=== PATIENT | female | born 1935 | race Caucasian/White ===

== ENCOUNTER 2017-07-24 15:54 | Inpatient (IN) | payer MEDICARE, OTHER ==
[~2017-07-24] VITALS: Ht 152.4 cm; Wt 65.5 kg
[~2017-07-24 15:54] MED LIST: ALEN70TA5 PO; CELE100C PO; CETI10TA18 PO; DOXY100C2 PO; DULO30CA2 PO; FAMO-75 PO; FLUT1DIS5 IH; FLUT9.9S NS; FURO-81 PO; GABA300C PO; GINK120C PO; GUAI600T31 PO; IPRA3AMP IH; LEVO500T51 PO; LEVO50TA6 PO; LEVO750T25 PO; METF10003 PO; METF500T5 PO; MONT10TA6 PO; MULT-186 PO; NAPR220C2 PO; PANT40TA5 PO; PRED20TA PO; SIMV20TA3 PO; TIOT18CA IH; TRAM50TA PO; VENL75CA PO; [UNRECOGNIZED DRUG - CODE] PO
--- NOTE | 2017-07-24 16:17 | NUR ---
PATIENT RECEIVED TO ROOM 309 VIA W/C. PATIENT LYING IN BED. REPORTS FEELING SOB AND "MY BONES HURT ALL OVER!!" 02 PLACED ON @2L/NC. PATIENT REPORTS PAIN 6-7 AT PRESENT. REPORTS PAIN ALL OVER "EVEN MY TOES AND FEET." DAUGHTER AT BEDSIDE. LUNG SOUNDS COARSE THROUGHOUT ALL LUNG ROMAN. PATIENT REPORTS EXPERIENCING "PHLEGM IN MY THROAT AND I USUALLY CANNOT COUGH ANYTHING UP." THE DAUGHTER REPORTS "SOMETIMES I CAN HEAR HER ACROSS THE ROOM!!" NO DISTRESS NOTED AT PRESENT. INSTRUCTED PATIENT RE: CALL LIGHT, SIDE RAILS, YELLOW SOCKS, PAIN MANAGEMENT,MD ROUNDS, MEALS, FALL PREVENTION, MEDS, 02 SAFETY, S/S TO REPORT, BED CONTROLS, CLEAR LIQUID DIET. PATIENT VERBALIZES UNDERSTANDING.
[2017-07-24 16:59] LABS: HEMOGLOBIN 11.1 g/dL (12.0-15.0); MEAN CELL HGB 30.2 pg (26-34); MEAN CELL HGB CONCENTRATION 31.3 g/dL (33-37); MEAN CORP VOLUME 96.7 fL (78-100); MEAN PLATELET VOLUME 9.1 fL (7.8-11.0); RED CELL DISTRIBUTION WIDTH 14.2 % (11.5-14.5); WHITE BLOOD CELL 11.1 10^3/uL (4.5-11.0)
[2017-07-24 17:00] VITALS: BP 126/95
--- NOTE | 2017-07-24 17:02 | PCM.EKG ---
[facility] Test Date: 2017-07-24 Test Time: 17:01:58 Pat Name: SARAH KWAN Department: Room: 309 A Gender: F Recovery Assistant: RT : 1935 Requested By: ANA MARIA RAMAN Order Number: [id number] Reading MD: Ana Maria Raman Measurements Intervals [place] Rate: 76 P: 98 VT: 156 QRS: 71 QRSD: 132 T: 62 QT: 386 QTc: 434 Interpretive Statements Normal sinus rhythm Right bundle branch block Abnormal ECG No previous ECG available for comparison Electronically Signed On 08-03-2017 7:23:10 CDT by Ana Maria Raman Please click the below link to view image of tracing.
[2017-07-24] MEDS: DUONEB 0.5 MG-3 MG/3 ML SOLN IH SCH ×2 (17:17→20:17)
[2017-07-24 17:25] LABS: CALCIUM 10.9 mg/dL (8.4-10.5); CARBON DIOXIDE 28.3 mmol/L (20.0-32)
[2017-07-24] MEDS ORDERED: FEXO1TAB29 PO (17:37)
--- NOTE | 2017-07-24 18:00 | NUR ---
PATIENT OFF UNIT FOR CT SCAN.
[2017-07-24] MEDS ORDERED: ANTIVERT PO PRN (18:30)
[2017-07-24 18:56] LABS: BILIRUBIN,URINE NEGATIVE (NEGATIVE); UROBILINOGEN,URINE NORMAL (NEGATIVE)
[2017-07-24 19:08] LABS: APPEARANCE,URINE CLEAR (CLEAR); UA COLOR DARK YELLOW (YELLOW)
[2017-07-24 19:32] VITALS: BP 135/70
[2017-07-24] MEDS: ULTRAM PO SCH (20:29)
[2017-07-24] MEDS: MUCINEX PO SCH (20:29)
[2017-07-24] MEDS: HNS 1000ML/KCL 20MEQ 1,000 ML IV SCH (20:29)
--- NOTE | 2017-07-24 20:43 | DIREP ---
PROCEDURE:CT CHEST WITH CONTRAST TECHNIQUE:Following the intravenous administration of contrast material, axial cuts were obtained through the chest. The images were viewed at lung and soft tissue settings. Sagittal and coronal reconstructions are provided. COMPARISON:CT, CT CHEST W/O, 01/31/2016, 09:44 PM. INDICATIONS:sob, cough, COPD FINDINGS: LUNGS:Centrilobular and paraseptal emphysema. Infiltrate is present in the left lower lobe posteriorly new as compared to previous study. There are chronic changes in the right middle lobe. CARDIAC:Normal size heart and normal pulmonary vascularity. THORACIC AORTA:Mildly calcified. MEDIASTINUM/JADYN:Normal. PLEURA:Normal. CHEST WALL:Normal. LIMITED ABDOMEN:Normal. BONES:Normal. THYROID:Normal. OTHER:No additional findings. CONCLUSION: 1. Left lower lobe infiltrate. 2. Centrilobular and paraseptal emphysema. 3. Atherosclerosis. Dictated by: Adair Zhang M.D. on 07/24/2017 at 08:33 PM
[2017-07-24] MEDS: NAPROXEN PO SCH (21:00)
--- NOTE | 2017-07-24 21:53 | HPH ---
ADMIT DATE: 07/24/2017 The patient is being placed under observation to Med/Surg. PRIMARY CARE PHYSICIAN: Marilyn Raman MD ADMITTING DIAGNOSES: 1. Shortness of breath with cough. 2. COPD exacerbation with hypoxia. 3. Hypertension, hyperlipidemia, type 2 diabetes mellitus. CHIEF COMPLAINT: Shortness of breath and coughing up sputum and not feeling well. HISTORY OF PRESENT ILLNESS: The patient is an 81-year-old female whom I have been treating for COPD for the past few weeks. I gave her an antibiotic initially with a Z-ELI and some breathing treatments, but she did improve from this. So, I extended the breathing treatments with more antibiotics and chest x-ray was done at that point. It appeared that she improved a little. However, she came back today, not feeling well. Her O2 sats were down to 86% on room air and her lungs had more rhonchi noted. No fever has been reported. She has been having productive sputum. She feels that her chest is tight and she cannot catch a deep breath. She has been doing her breathing treatments 3 times a day. Her appetite has gone down. She feels achy, her bones feel achy all over and again she has not been feeling well. No syncope reported. No lethargy reported. No recent travel. Unknown sick contacts reported recently. PAST MEDICAL HISTORY: Significant for hypertension, hyperlipidemia, COPD. She does have type 2 diabetes mellitus. PAST SURGERIES: Tonsillectomy and hysterectomy. SOCIAL HISTORY: She quit smoking more than 5 years ago. No alcohol, no drug use reported. FAMILY HISTORY: Asked and noncontributory for this admission. CURRENT MEDICATIONS: She is on include Mucinex, DuoNeb treatments, levothyroxine, Singulair, Protonix, simvastatin, tramadol, Rocio, meclizine, metformin, and Aleve. PHYSICAL EXAMINATION: VITAL SIGNS: Upon admission are as follows: Her temperature is 97.6, pulse rate 80, respirations 18, blood pressure 126/95 and O2 sats of 97% on 2 liters of nasal cannula. My physical exam is as follows: GENERAL: She is in no acute distress, awake and alert. HEENT: Oropharynx is clear. No maxillary sinus tenderness. NECK: Supple. HEART: S1, S2 audible. No murmurs. LUNGS: She had rhonchi bilaterally with decreasing breath sounds. ABDOMEN: Good bowel sounds, soft abdomen. EXTREMITIES: She has some varicose veins, 1+ distal pulses are noted. SKIN: Warm and dry. LABORATORY DATA: Laboratories were obtained. Her white count was 11,100, hemoglobin 11.1 and platelet count of 379. Sed rate was 44. Chemistry panel looked okay. BUN 29, creatinine 0.9. Her CRP was elevated at 10.41, calcium was up to 10.9. IMAGING STUDIES: EKG showed right bundle branch block that is old. ASSESSMENT: We have this female with COPD, shortness of breath, cough, malaise and fatigue with elevated calcium levels. I will get a PTH level and continue DuoNeb treatments with some Mucinex in the hospital. I will get a CT scan of the chest to see how her lungs are doing at this point, follow her blood sugars and see how she will feel by tomorrow. Marilyn Raman MD DR: KRISTEL/pelon JOB# [id number]
[2017-07-24] MEDS ORDERED: SOLU-MEDROL IV STA (23:31)
[2017-07-24 23:35] VITALS: BP 167/62
[2017-07-25] MEDS ORDERED: ROCEPHIN 1,000 MG in NS 100ML 100 ML IV SCH ×2
[2017-07-25] MEDS ORDERED: SOLU-MEDROL ONE (01:29)
[2017-07-25] MEDS ORDERED: NS 100ML 100 ML IV ONE (01:31)
[2017-07-25] MEDS ORDERED: ROCEPHIN ONE (01:31)
[2017-07-25 04:15] VITALS: BP 133/62
--- NOTE | 2017-07-25 06:30 | NUR ---
Report Received report and assumed care of pt. Pt resting in bed with eyes closed. Equal rise and fall of the chest noted. IV infusing with heat, redness, or edema noted at site. Call light within reach.
--- NOTE | 2017-07-25 06:30 | NUR ---
Report Report given to Ella Georges RN
[2017-07-25] MEDS: HNS 1000ML/KCL 20MEQ 1,000 ML IV SCH ×2 (07:00→21:49)
[2017-07-25 08:33] VITALS: BP 130/71
[2017-07-25] MEDS: CYMBALTA PO SCH (08:34)
[2017-07-25] MEDS: SINGULAIR PO SCH (08:35)
[2017-07-25] MEDS: MUCINEX PO SCH ×2 (08:35→21:47)
[2017-07-25] MEDS: PROTONIX PO SCH (08:35)
[2017-07-25] MEDS: ZOCOR PO SCH (08:35)
[2017-07-25] MEDS: ULTRAM PO SCH ×3 (08:35→21:49)
[2017-07-25] MEDS: NAPROXEN PO SCH ×2 (09:00→21:00)
[2017-07-25] MEDS ORDERED: SYNTHROID PO SCH (09:00)
[2017-07-25] MEDS: DUONEB 0.5 MG-3 MG/3 ML SOLN IH SCH ×4 (09:07→20:56)
--- NOTE | 2017-07-25 09:45 | NUR ---
DISCHARGE PLANNING CM VISITED WITH PATIENT REGARDING DISCHARGE PLAN AND NEEDS. PATIENT LIVES AT HOME ALONE. SHE HAS A DAUGHTER AND SON-IN-LAW WHO LIVE DOWN THE STREET AND ARE VERY SUPPORTIVE OF ANYTHING SHE NEEDS. SHE HAS A WALKER AND A SHOWER CHAIR AT HOME, AND HOME OXYGEN THROUGH [facility] IN [place]. PATIENT HAS HAS [facility] HOME HEALTH IN THE PAST, CM DISCUSSED GETTING THAT SET BACK UP AND PATIENT REFUSED. PATIENT STATES SHE WANTS TO GO TO OUTPATIENT PHYSICAL THERAPY AT [facility] WITH [facility]. PATIENT WILL DISCUSS PT ORDER WITH DR. CHIU WHEN HE ROUNDS. DISCHARGE GOAL IS TO DISCHARGE HOME. CM DEPT WILL CONTINUE TO FOLLOW DISCHARGE NEEDS.
[2017-07-25 11:50] VITALS: BP 111/54
[2017-07-25] MEDS ORDERED: LASIX IV STA (12:48)
[2017-07-25] MEDS ORDERED: XOPENEX IH PRN (13:00)
[2017-07-25] MEDS: PREDNISONE PO SCH (13:00)
[2017-07-25] MEDS ORDERED: PREDNISONE PO ONE (13:48)
[2017-07-25 17:10] VITALS: BP 154/85
--- NOTE | 2017-07-25 18:30 | NUR ---
Report Received report from Ella Georges RN
[2017-07-25 20:40] VITALS: BP 136/66
[2017-07-25] MEDS: ADVAIR 250-50 DISKUS IH SCH (20:55)
[2017-07-25] MEDS: ROCEPHIN 1,000 MG in NS 100ML 100 ML IV SCH (21:48)
[2017-07-26] VITALS (7 sets, daily range): BP systolic 135–172; BP diastolic 56–93
[2017-07-26 05:47] LABS: BASOPHIL % 0.1 % (0.0-0.2); EOSINOPHIL % 0.4 % (0.0-5.0); HEMOGLOBIN 10.3 g/dL (12.0-15.0); LYMPHOCYTES # 1.6 10^3/uL (1.0-4.8); LYMPHOCYTES % 16.6 % (24.0-44.0); MEAN CELL HGB 30.3 pg (26-34); MEAN CORP VOLUME 94.7 fL (78-100); MEAN PLATELET VOLUME 9.6 fL (7.8-11.0); MONOCYTES # 1.1 10^3/uL (0.3-0.8); MONOCYTES % 11.3 % (5.0-12.0); NEUTROPHILS % 71.4 % (41.0-85.0); RED CELL DISTRIBUTION WIDTH 13.8 % (11.5-14.5); WHITE BLOOD CELL 9.9 10^3/uL (4.5-11.0)
[2017-07-26 05:56] LABS: CALCIUM 10.6 mg/dL (8.4-10.5); CARBON DIOXIDE 25.9 mmol/L (20.0-32)
[2017-07-26] MEDS: SYNTHROID PO SCH (06:29)
--- NOTE | 2017-07-26 06:40 | NUR ---
BEDSIDE REPORT RECEIVED FROM GERRI AVERY. PATIENT LYING IN BED WITH EYES CLOSED. RESPIRATIONS UNLABORED. NO DISTRESS NOTED. SKIN WARM AND DRY. SIDE RAILS UP X2. CALL LIGHT WITHIN REACH.
--- NOTE | 2017-07-26 07:30 | NUR ---
ASSESSMENT COMPLETED. PATIENT RESPIRATIONS UNLABORED. LUNG SOUNDS WITH SLIGHT COARSENESS. LOOSE COUGH NOTED. PATIENT DENIES PRODUCTIVE COUGH. HEART RATE REGULAR. SKIN WARM AND DRY. VOIDING WITHOUT PROBLEMS. ABDOMEN SOFT WITH ACTIVE BOWEL SOUNDS. NO DISTRESS NOTED. PATIENT STATES "IM FEELING BETTER." IV PATENT WITHOUT S/S INFILTRATION. 1/2 NS INFUSING AT 100CC/HR. SR UPX2. CALL LIGHT WITHIN REACH.
[2017-07-26] MEDS: HNS 1000ML/KCL 20MEQ 1,000 ML IV SCH ×2 (08:00→12:37)
[2017-07-26] MEDS: ADVAIR 250-50 DISKUS IH SCH ×2 (08:56→21:00)
[2017-07-26] MEDS: DUONEB 0.5 MG-3 MG/3 ML SOLN IH SCH ×4 (08:56→21:55)
[2017-07-26] MEDS: SINGULAIR PO SCH (09:17)
[2017-07-26] MEDS: MUCINEX PO SCH ×2 (09:17→21:09)
[2017-07-26] MEDS: PROTONIX PO SCH (09:17)
[2017-07-26] MEDS: CYMBALTA PO SCH (09:17)
[2017-07-26] MEDS: ZOCOR PO SCH (09:17)
[2017-07-26] MEDS: ULTRAM PO SCH ×3 (09:19→21:09)
--- NOTE | 2017-07-26 09:20 | NUR ---
PATIENT TOOK OWN INHALATION OF ADVAIR DISKUS WHILE NURSE AT BEDSIDE.
[2017-07-26] MEDS: PREDNISONE PO SCH (09:28)
[2017-07-26] MEDS: NAPROXEN PO SCH ×2 (09:28→21:08)
--- NOTE | 2017-07-26 10:45 | NUR ---
PATIENT RESTING WITHOUT DISTRESS. RESPIRATIONS UNLABORED. 02 ON PER NASAL CANNULA AT 2L. NO DISTRESS NOTED. SR UP X2. CALL LIGHT WITHIN REACH.
--- NOTE | 2017-07-26 12:15 | PRM.PN ---
Subjective Subjective Date: Jul 26, 2017 Time: 12:00 Subjective Pt breathing ok Patient History: Asthma 33 FATHER, Chronic obstructive pulmonary disease 33 FATHER, G8 BROTHER, G8 SISTER, Congestive heart failure 33 FATHER, Diabetes mellitus 32 MOTHER, 19 CHILD FH: back pain 19 CHILD FH: coronary artery disease G8 BROTHER, FH: drug dependence 19 CHILD Hypertension 32 MOTHER, G8 SISTER, Unknown G8 SISTER, No Family History of: Alzheimer's disease Cerebrovascular disorder Diabetes insipidus Parkinson's disease VTE VTE Risk Total Score: 3 VTE Risk Score VTE Risk: Score 0-1 = Low Risk (Aggressive mobilization; early ambulation; no VTE prophylaxis required) Score 2: Moderate Risk (Intermittent/Pneumatic Compression Device OR Lovenox/Heparin/Coumadin) Score 3-4: High Risk (Intermittent/Pneumatic Compression Device AND Lovenox/Heparin/Coumadin) Score > or =5: Highest Risk (Intermittent/Pneumatic Compression Device AND Lovenox/Heparin/Coumadin) Antico:Hep/LMWH/Coum/Xarelto: Yes Mechanical device ordered: Yes Review of Systems Constitutional: No: Fever, Malaise Eyes: No: Pain, Vision change, Conjunctivae inflammation, Eyelid inflammation ENT: No: Ear pain, Ear discharge, Nose pain, Nose discharge, Nose congestion Respiratory: Cough, SOB with excertion Cardiovascular: No: Chest Pain, Palpitations, Orthopnea Gastrointestinal: No: Nausea, Vomiting, Abdominal Pain Genitourinary: No Dysuria, No Hematuria, No Retention Musculoskeletal: No: neck pain, arm pain Skin: No: Lesions, Jaundice, Bruising Neurological: No: Numbness, Incoordination, Confusion, Seizures Allergies: Coded Allergies: Penicillins (Unverified Allergy, Unknown, SWELLING,SICK TO STOMACH, ) codeine (Unverified Adverse Reaction, Severe, 07/24/17) DIZZINESS Scheduled Duloxetine Hcl (Cymbalta), 1 CAP PO DAILY, (Reported) Fexofenadine/Pseudoephedrine (Rocio-D 24 Hour Tablet), 1 TAB PO DAILY, ( Reported) Guaifenesin (Mucinex), 1 TAB PO BID Ipratropium/Albuterol Sulfate (Iprat-Albut 0.5-3(2.5) Mg/3 Ml), 3 ML IH QID Levothyroxine Sodium (Levothyroxine Sodium), 50 MCG PO DIRECTED, (Reported) Metformin Hcl (Metformin Hcl), 1 TAB PO BID Montelukast Sodium (Singulair), 10 MG PO DAILY, (Reported) Naproxen Sodium (Aleve), 220 MG PO BID, (Reported) Pantoprazole Sodium (Pantoprazole Sodium), 40 MG PO DAILY, (Reported) Simvastatin (Simvastatin), 20 MG PO DAILY, (Reported) Tramadol Hcl (Tramadol Hcl), 50 MG PO TID, (Reported) Scheduled PRN Meclizine Hcl (Meclizine Hcl), 25 MG PO TID PRN for DIZZINESS, (Reported) Discontinued Medications Alendronate Sodium (Alendronate Sodium), 70 MG PO ONCE WEEKLY, (Reported) Discontinued Reason: No Longer Taking Cetirizine Hcl (Cetirizine Hcl), 1 TAB PO DAILY, (Reported) Discontinued Reason: No Longer Taking Ginkgo Biloba Extract (Ginkgo Biloba), 60 MG PO BID, (Reported) Discontinued Reason: No Longer Taking Multivitamin (Multi-Day Vitamins), 1 TAB PO DAILY, (Reported) Discontinued Reason: No Longer Taking Tiotropium [place] (Spiriva), 18 MCG IH DAILY, (Reported) Discontinued Reason: No Longer Taking Objective Vitals and I/O Vital Sign - Last 24 Hours 07/25/17 07/25/17 07/25/17 07/25/17 13:51 13:55 14:06 17:10 Temp 98.0 Pulse 85 87 87 Resp 20 20 20 B/P (MAP) 111/54 154/85 (108) Pulse Ox 98 98 94 07/25/17 07/25/17 07/25/17 07/25/17 17:37 17:45 20:40 20:59 Temp 98.8 Pulse 87 88 88 83 Resp 20 18 B/P (MAP) 136/66 (89) Pulse Ox 97 97 97 97 O2 Delivery Nasal Canula 07/25/17 07/25/17 07/25/17 07/26/17 21:00 21:08 22:08 00:37 Temp 97.4 Pulse 83 86 86 Resp 18 B/P (MAP) 136/75 (95) Pulse Ox 97 97 95 O2 Delivery Comfort Zev Nasal Cannula Nasal Canula O2 Flow Rate 2.00 2.00 FiO2 28 07/26/17 07/26/17 07/26/17 07/26/17 04:42 07:57 08:57 08:59 Temp 98.1 98.0 Pulse 84 79 84 84 Resp 18 B/P (MAP) 135/57 (83) 157/67 (97) Pulse Ox 97 99 91 91 O2 Delivery Nasal Canula Nasal Canula Nasal Cannula O2 Flow Rate 2.00 FiO2 28 07/26/17 07/26/17 09:05 11:56 Temp 98.9 Pulse 79 85 Resp 18 17 B/P (MAP) 147/56 (86) Pulse Ox 96 100 O2 Delivery Nasal Canula Intake and Output 07/25/17 07/25/17 07/26/17 15:00 23:00 07:00 Intake Total 980 ml 490 ml Output Total 2300 ml 1150 ml Balance -1320 ml -660 ml General: Alert, Oriented X3, Cooperative, No acute distress HEENT: Atraumatic, PERRLA, Mucous membr. moist/pink Neck: Supple, No JVD, No LAD Lungs: Clear to auscultation, Normal air movement Heart: Normal S1, Normal S2 Abdomen: Normal bowel sounds, Soft Extremities: No clubbing, No cyanosis Skin: No rashes, No breakdown Neuro: Normal speech Psych/Mental Status: Mental status NL, Mood NL Medication Reconciliation Scheduled Duloxetine Hcl (Cymbalta), 1 CAP PO DAILY, (Reported) Fexofenadine/Pseudoephedrine (Rocio-D 24 Hour Tablet), 1 TAB PO DAILY, ( Reported) Guaifenesin (Mucinex), 1 TAB PO BID Ipratropium/Albuterol Sulfate (Iprat-Albut 0.5-3(2.5) Mg/3 Ml), 3 ML IH QID Levothyroxine Sodium (Levothyroxine Sodium), 50 MCG PO DIRECTED, (Reported) Metformin Hcl (Metformin Hcl), 1 TAB PO BID Montelukast Sodium (Singulair), 10 MG PO DAILY, (Reported) Naproxen Sodium (Aleve), 220 MG PO BID, (Reported) Pantoprazole Sodium (Pantoprazole Sodium), 40 MG PO DAILY, (Reported) Simvastatin (Simvastatin), 20 MG PO DAILY, (Reported) Tramadol Hcl (Tramadol Hcl), 50 MG PO TID, (Reported) Scheduled PRN Meclizine Hcl (Meclizine Hcl), 25 MG PO TID PRN for DIZZINESS, (Reported) Discontinued Medications Alendronate Sodium (Alendronate Sodium), 70 MG PO ONCE WEEKLY, (Reported) Discontinued Reason: No Longer Taking Cetirizine Hcl (Cetirizine Hcl), 1 TAB PO DAILY, (Reported) Discontinued Reason: No Longer Taking Ginkgo Biloba Extract (Ginkgo Biloba), 60 MG PO BID, (Reported) Discontinued Reason: No Longer Taking Multivitamin (Multi-Day Vitamins), 1 TAB PO DAILY, (Reported) Discontinued Reason: No Longer Taking Tiotropium [place] (Spiriva), 18 MCG IH DAILY, (Reported) Discontinued Reason: No Longer Taking Course Blood Pressure Systolic: 147 Blood Pressure Diastolic: 56 Blood Pressure Mean: 86 Assessment/Plan Assessment/Plan Assessment/Plan 81 yo female with pneumonia, COPD, DM, hypercalcemia - cont IV abx - cont IVF - cont neb tx - follow sugars on low dose prednisone Problems: Patient History: Asthma 33 FATHER, Chronic obstructive pulmonary disease 33 FATHER, G8 BROTHER, G8 SISTER, Congestive heart failure 33 FATHER, Diabetes mellitus 32 MOTHER, 19 CHILD FH: back pain 19 CHILD FH: coronary artery disease G8 BROTHER, FH: drug dependence 19 CHILD Hypertension 32 MOTHER, G8 SISTER, Unknown G8 SISTER, No Family History of: Alzheimer's disease Cerebrovascular disorder Diabetes insipidus Parkinson's disease ANA MARIA CHIU MD Jul 26, 2017 12:15
--- NOTE | 2017-07-26 12:30 | NUR ---
PATIENT SITTING UP IN BED. RESPIRATIONS UNLABORED. 02 ON PER NASAL CANNULA AT 2L/NC. REPORTS BACK PAIN WITH MOVING AROUND ROOM OR GETTING OUT OF BED. VERBALIZES PAIN IS NOT SEVERE UPON ADMISSION. IV PATENT IN RIGHT WRIST WITH 1/2NS WITH 20 K+ INFUSING AT 80CC/HR VIA PUMP. NEGATIVE S/S INFILTRATION NOTED. NO DISTRESS NOTED AT PRESENT. PATIENT INDEPENDENT IN ROOM WITH ROLLING WALKER. SIDE RAILS UP X2. CALL LIGHT WITHIN REACH.
[2017-07-26] MEDS: LOVENOX SQ SCH (12:53)
--- NOTE | 2017-07-26 14:15 | NUR ---
PATIENT RESTING IN BED WITH EYES CLOSED. NEGATIVE DISTRESS NOTED.
--- NOTE | 2017-07-26 15:59 | NUR ---
PATIENT RESTING IN BED WATCHING TV. REPORTS PAIN MUCH IMPROVED SINCE IMPROVEMENT. STATES "I FEEL MORE SORENESS THAN ANYTHING. SOON I MOVE THOUGH THE PAIN SURE SHOOTS THRU ME." RESPIRATIONS UNLABORED. REPORTS OCCASIONAL PRODUCTIVE COUGH. REPORTS SMALL AMOUNT "DIRTY GREEN" SPUTUM. SR UP X2. CALL LIGHT WITHIN REACH. DENIES UNMET NEEDS.
--- NOTE | 2017-07-26 17:30 | NUR ---
RESTING IN BED. AWAKE AND ALERT. DENIES COMPLAINTS. SKIN WARM AND DRY. RESPIRATIONS UNLABORED. 02 ON PER NASAL CANNULA AT 2L/NC. IV PATENT WITHOUT S/S INFILTRATION. DENIES UNMET NEEDS. SR UPX2. CALL LIGHT WITHIN REACH.
--- NOTE | 2017-07-26 19:00 | NUR ---
REPORT GIVEN TO GERRI MANN.
[2017-07-26] MEDS: ROCEPHIN 1,000 MG in NS 100ML 100 ML IV SCH (21:14)
[2017-07-27 04:43] VITALS: BP 149/75
[2017-07-27] MEDS: HNS 1000ML/KCL 20MEQ 1,000 ML IV SCH (05:24)
[2017-07-27] MEDS: SYNTHROID PO SCH (06:20)
--- NOTE | 2017-07-27 06:55 | NUR ---
REPORT RECEIVED FROM GERRI MANN.
[2017-07-27 07:25] VITALS: BP 139/71
--- NOTE | 2017-07-27 07:30 | NUR ---
ASSESSMENT COMPLETED. PATIENT AWAKE AND ALERT. SKIN WARM AND DRY. RESPIRATIONS UNLABORED. HEART RATE REGULAR. DENIES DIFFICULTY BREATHING. OCCASIONAL PRODUCTIVE COUGH. ABDOMEN SOFT AND NONDISTENDED. DENIES DIFFICULTY URINATING. URINE PALE YELLOW AND CLEAR. PATIENT REPORTS CONTINUOUS LOW BACK PAIN. DENIES SEVERE. AMBULATORY IN ROOM. IV PATENT WITHOUT S/S INFILTRATION. SR UPX2. CALL LIGHT WITHIN REACH. NO DISTRESS AT PRESENT.
[2017-07-27] MEDS: DUONEB 0.5 MG-3 MG/3 ML SOLN IH SCH ×2 (08:46→12:43)
[2017-07-27] MEDS: ADVAIR 250-50 DISKUS IH SCH (08:46)
--- NOTE | 2017-07-27 09:30 | NUR ---
MEDS ADMINISTERED. PATIENT SITTING UP IN BED. DENIES UNMET NEEDS. NO DISTRESS NOTED. SR UPX2. CALL LIGHT WITHIN REACH.
[2017-07-27] MEDS: CYMBALTA PO SCH (09:31)
[2017-07-27] MEDS: PREDNISONE PO SCH (09:31)
[2017-07-27] MEDS: PROTONIX PO SCH (09:31)
[2017-07-27] MEDS: SINGULAIR PO SCH (09:31)
[2017-07-27] MEDS: MUCINEX PO SCH (09:31)
[2017-07-27] MEDS: ZOCOR PO SCH (09:34)
[2017-07-27] MEDS: NAPROXEN PO SCH (09:34)
[2017-07-27] MEDS: ULTRAM PO SCH (09:35)
--- NOTE | 2017-07-27 11:29 | NUR ---
PATIENT RESTING IN BED WITH EYES CLOSED. DENIES UNMET NEEDS. RESPONDS TO VERBAL STIMULI.
[2017-07-27 11:52] VITALS: BP 127/67
[2017-07-27] MEDS: LOVENOX SQ SCH (12:18)
[2017-07-27] MEDS ORDERED: PRED1TAB PO (12:23)
[2017-07-27] MEDS ORDERED: CEFD300C2 PO (12:23)
[2017-07-27 13:10] VITALS: BP 127/67
--- NOTE | 2017-07-27 13:10 | NUR ---
DISCHARGE INSTRUCTIONS GIVEN TO PATIENT AND DAUGHTER. INSTRUCTED RE: NEW MEDS, SIDE EFFECTS TO REPORT. IMPORTANCE OF COMPLIANCE. PATIENT REPORTS BEING ON SAME MEDS BEFORE AND WERE DISCONTINUED. INSTRUCTED RE: FOLLOWUP WITH MD. DAUGHTER ACCOMPANYING DAUGHTER. DISCHARGED TO PRIVATE VEHICLE WITH DAUGHTER.
--- NOTE | 2017-07-27 23:32 | DSH ---
DATE OF DISCHARGE: 07/27/2017 ADMITTING DIAGNOSES: Pneumonia with shortness of breath, malaise and COPD exacerbation and type 2 diabetes mellitus and hypercalcemia. DISCHARGE DIAGNOSES: Pneumonia, resolving with COPD, diabetes, and hypercalcemia. HOSPITAL COURSE: The patient is a pleasant 81-year-old female who came in with worsening cough and congestion. She did have underlying COPD and on oxygen treatment. She did have a COPD exacerbation; however, CT scan did show a left basilar pneumonia. I went ahead and started her on IV Rocephin with breathing treatments. I gave her a one-time dose of Solu-Medrol that helped her breathing. Sugars were running on the high side; however, they normalized after that. She did respond well to prednisone before and she had requested to go back on prednisone, so I put her on 2 mg of prednisone at this point and her sugars are not very elevated. Her metformin was held for [address] scan with IV contrast was done, but it will be restarted today. Her breathing is better. Her calcium level was around 11 chronically. I gave her some fluids and some Lasix. Her calcium is down to 10.6. Kidney function looks good. Her white count is good at this point. So, she will be discharged today, resume her home neb treatments, her home oxygen, use her incentive spirometry. I am putting her on Omnicef twice a day for 5 days and some prednisone 2 mg a day along with her other home medications. She is to follow up with me next week. My office staff will make the appointment. Resume home diet and resume her metformin for now. I did send off a parathyroid hormone on her as a workup for her hypercalcemia and it was normal. Marilyn Raman MD DR: KRISTEL/pelon JOB# [id number]
== END 2017-07-27 13:24 | disposition home or self-care (01) | DRG 193 ==
LOC: ATP 15:54 → MS 15:57 → OBSVTOIN 07-25 12:47
PROVIDERS: ADMIT Pediatrics; ATTEND Pediatrics
DX: J18.9 Pneumonia, unspecified organism (principal); J96.21 Acute and chronic respiratory failure with hypoxia; J44.0 Chronic obstructive pulmonary disease with (acute) lower respiratory infection; J44.1 Chronic obstructive pulmonary disease with (acute) exacerbation; E83.52 Hypercalcemia; E11.9 Type 2 diabetes mellitus without complications; E78.5 Hyperlipidemia, unspecified; I10 Essential (primary) hypertension; Z87.891 Personal history of nicotine dependence; Z90.710 Acquired absence of both cervix and uterus; Z79.84 Long term (current) use of oral hypoglycemic drugs; Z79.899 Other long term (current) drug therapy; Z88.0 Allergy status to penicillin; Z88.5 Allergy status to narcotic agent; Z82.5 Family history of asthma and other chronic lower respiratory diseases; Z82.49 Family history of ischemic heart disease and other diseases of the circulatory system; Z83.3 Family history of diabetes mellitus
CPT/HCPCS: 36415; 71260; 80048; 81000; 82948; 83970; 85025; 85027; 85651; 86140; 93005; 94640; G0378; J0696; J1650; J2920; J7030; J7050; J7512; J7620; J1940; J8499; Q9965

== ENCOUNTER 2018-04-04 15:27 | Inpatient (IN) | payer MEDICARE, OTHER ==
[~2018-04-04] VITALS: Ht 157.5 cm; Wt 62.7 kg
[~2018-04-04 15:27] MED LIST changes: -ALEN70TA5 PO; +ALEN70TA6 PO; +CEFD300C2 PO; +FEXO1TAB29 PO; -IPRA3AMP IH; +IPRA3AMP25 IH; -METF10003 PO; +METF10007 PO; +METF500T17 PO; -METF500T5 PO; +PRED1TAB PO
[2018-04-04] MEDS ORDERED: NS 500ML 500 ML IV ONE (15:35)
--- NOTE | 2018-04-04 15:36 | NUR ---
ARRIVAL PT ARRIVED AT THIS TIME.
[2018-04-04 15:50] LABS: BASOPHIL % 0.2 % (0.0-0.2); EOSINOPHIL # 0.1 10^3/uL (0.0-0.2); EOSINOPHIL % 0.6 % (0.0-5.0); HEMOGLOBIN 11.6 g/dL (12.0-15.0); LYMPHOCYTES # 1.6 10^3/uL (1.0-4.8); LYMPHOCYTES % 9.6 % (24.0-44.0); MEAN CELL HGB 29.8 pg (26-34); MEAN CELL HGB CONCENTRATION 30.9 g/dL (33-37); MEAN CORP VOLUME 96.7 fL (78-100); MEAN PLATELET VOLUME 8.8 fL (7.8-11.0); MONOCYTES # 1.2 10^3/uL (0.3-0.8); MONOCYTES % 7.6 % (5.0-12.0); NEUTROPHIL # 13.2 10^3/uL (1.8-7.7); NEUTROPHILS % 81.8 % (41.0-85.0); RED CELL DISTRIBUTION WIDTH 13.9 % (11.5-14.5); WHITE BLOOD CELL 16.1 10^3/uL (4.5-11.0)
--- NOTE | 2018-04-04 15:53 | PCM.EKG ---
[facility] Test Date: 2018-04-04 Test Time: 15:49:12 Pat Name: SARAH KWAN Department: Room: 312 A Gender: F Chemical Lab Technician: SHREYA : 1935 Requested By: ANA MARIA CHIU Order Number: [id number] Reading MD: Measurements Intervals [place] Rate: 93 P: 105 NC: 152 QRS: 68 QRSD: 132 T: 52 QT: 372 QTc: 462 Interpretive Statements Normal sinus rhythm Right bundle branch block Abnormal ECG Compared to ECG 07/24/2017 17:01:58 No significant changes Please click the below link to view image of tracing.
[2018-04-04] MEDS ORDERED: LORA10TA75 PO (16:07)
[2018-04-04] MEDS ORDERED: ALBU18HF IH (16:07)
[2018-04-04] MEDS ORDERED: BUPR150T17 PO (16:07)
[2018-04-04] MEDS ORDERED: FLUT1DIS5 IH (16:07)
[2018-04-04 16:14] LABS: ALANINE AMINOTRANSFERASE(ML) 13 U/L (12-78); ALKALINE PHOSPHATASE 170 U/L (50-136); ASPARTATE AMINO TRANSFERASE 11 U/L (0-35); CALCIUM 11.2 mg/dL (8.4-10.5); CARBON DIOXIDE 27.4 mmol/L (20.0-32); GLUCOSE 122 mg/dL (70-110)
[2018-04-04 16:36] VITALS: BP 136/74
[2018-04-04] MEDS: DUONEB 0.5 MG-3 MG/3 ML SOLN IH SCH ×2 (17:04→20:21)
--- NOTE | 2018-04-04 17:42 | DIREP ---
PROCEDURE:CHEST 2 VIEWS COMPARISON:[facility], CT, CT CHEST W/CONTRAST, 07/24/2017, 06:28 PM. INDICATIONS:sob, cough FINDINGS: LUNGS/PLEURA:COPD with no acute infiltrates. VASCULATURE:Normal. Unremarkable pulmonary vasculature. CARDIAC:Normal. No cardiac silhouette abnormality or cardiomegaly. MEDIASTINUM:Normal. No visible mass or adenopathy. BONES:Mild degenerative changes in the thoracic spine with mild dextroscoliosis. OTHER:Negative. CONCLUSION: 1. COPD with no acute infiltrates. Dictated by: Sukhi Sidhu M.D. on 04/04/2018 at 05:38 PM
[2018-04-04] MEDS ORDERED: ROCEPHIN ONE (19:27)
[2018-04-04] MEDS ORDERED: NS 100ML 100 ML IV ONE (19:27)
[2018-04-04] MEDS: ROCEPHIN 1,000 MG in NS 100ML 100 ML IV SCH (19:31)
[2018-04-04 19:51] VITALS: BP 146/77
--- NOTE | 2018-04-04 20:23 | HPH ---
ADMIT DATE: 04/04/2018 The patient is being placed under observation to Med-Surg. PRIMARY CARE PHYSICIAN: Marilyn Raman M.D. ADMITTING DIAGNOSES: 1. Chronic obstructive pulmonary disease exacerbation with hypoxia. 2. Cough with a suspected sinusitis. 3. Hypertension, hyperlipidemia, and type 2 diabetes mellitus with malaise and fatigue. CHIEF COMPLAINT: Coughing and not feeling well. HISTORY OF PRESENT ILLNESS: As follows: The patient is a very pleasant 82-year-old female who for the past week 7-10 days has been having increasing coughing and shortness of breath. She states she has been coughing a lot of nasty sputum up, and she is very congested. She has been taking her breathing treatments, but she came into my office today with O2 sat of 87%, and she was having some significant coughing and shortness of breath. She had lots of wheezing on exam and at that point, she definitely had a COPD exacerbation in my office, and I was concerned about a possibility of underlying infection, so I put her in the hospital and did a workup at that point. She does complain of some chills, but no fever lately. No syncope, no lethargy, her appetite has been poor. She does have some chest discomfort when she coughs. She denies any abdominal pain. There is no hematemesis, no melena, no hemoptysis, no recent travel reported, no dysuria, no diarrhea, no constipation. PAST MEDICAL HISTORY: Significant for hypertension, hyperlipidemia, COPD, GERD, and type 2 diabetes mellitus. PAST SURGICAL HISTORY: She has had a tonsillectomy and hysterectomy. SOCIAL HISTORY: She quit smoking more than 5 years ago. No alcohol, no drug use reported. FAMILY HISTORY: Asked and noncontributory for this admission. MEDICATIONS: Medications that she is on at home include following: Advair, albuterol, Mucinex, naproxen, bupropion, Cymbalta, levothyroxine, Claritin, meclizine, metformin, Singulair, Protonix, and simvastatin. PHYSICAL EXAMINATION: VITAL SIGNS: When she first came in are as follows: Temperature is 98.3, pulse rate was 85, respirations 19, blood pressure was 136/74, O2 sats were initially 90% on room air. My physical exam is as follows: GENERAL: When I saw her in my office. She appeared tired, and she was coughing a lot and having shortness of breath. HEENT: Oropharynx was clear. She does have some sinus congestion noted. NECK: Supple. RESPIRATORY: She had audible expiratory wheezes throughout her lung [place] with diminished breath sounds at the bases. HEART: S1, S2 audible, slight systolic murmur noted. ABDOMEN: Bowel sounds are present. Soft abdomen, no rebound, no guarding, no masses. EXTREMITIES: No pitting edema, 2+ distal pulses are noted. SKIN: Warm and dry. LABORATORY DATA: Labs were obtained. White count was elevated to 16,100, hemoglobin of 11.6 and platelet count of 438. Sed rate was 49. Coags were normal. Chemistry panel had a glucose of 122, calcium of 11.2. CRP was elevated to 12.74. Troponin was less than 0.02, proBNP was 1116. Chest x-ray showed COPD picture without any infiltrates noted. EKG had a right bundle branch block that was no change from prior EKG. ASSESSMENT: We have this elderly female with COPD exacerbation and sinusitis. She is not septic, currently. I will go ahead and put her on DuoNeb treatments with Solu-Medrol and Rocephin therapy, start her on some incentive spirometry and flutter valve. Follow her sugars and blood pressures in the hospital and give her some fluids in the meantime. I will get an echo to assess her pulmonary artery pressures at this point to see whether or not her COPD has affected her heart. Marilyn Raman MD DR: KRISTEL/pelon JOB# [id number]
[2018-04-04] MEDS: GLUCOPHAGE PO SCH (21:00)
[2018-04-04] MEDS ORDERED: ANTIVERT PO PRN (21:30)
--- NOTE | 2018-04-04 21:30 | NUR ---
MEDICATION CALLED DR APPLE REED WAS REQUESTING AN ORDER FOR ALEVE FOR BACK PAIN. DR CHIU ORDERED 220 MG PRN
[2018-04-04] MEDS: SOLU-MEDROL IV SCH (21:38)
[2018-04-04] MEDS ORDERED: NS 250ML 250 ML IV ONE (21:41)
[2018-04-04] MEDS ORDERED: NAPROXEN PO PRN (22:00)
[2018-04-05 01:30] VITALS: BP 142/74
[2018-04-05] MEDS: SOLU-MEDROL IV SCH ×3 (05:25→21:57)
[2018-04-05 05:30] VITALS: BP 136/75
[2018-04-05 08:04] VITALS: BP 147/63
[2018-04-05] MEDS: SINGULAIR PO SCH (08:52)
[2018-04-05] MEDS: CYMBALTA PO SCH (08:52)
[2018-04-05] MEDS: PROTONIX PO SCH (08:52)
[2018-04-05] MEDS: CLARITIN PO SCH (08:53)
[2018-04-05] MEDS: WELLBUTRIN XL PO SCH (08:53)
[2018-04-05] MEDS: SYNTHROID PO SCH (08:53)
[2018-04-05] MEDS: GLUCOPHAGE PO SCH ×2 (08:53→21:57)
[2018-04-05] MEDS: ZOCOR PO SCH (08:53)
--- NOTE | 2018-04-05 10:02 | DIET.OP ---
Nutrition Asmt/Malnutrit 2-17 Nutritional Screening: Malnutr/Diet Consult Diagnosis: COPD exacerbation Pertinent Medical Hx/Surgical: Per MD: Significant for hypertension, hyperlipidemia, COPD, GERD, and type 2 diabetes mellitus. Subjective Information: Patient has a fair appetite. Uses metoformin at home for DM, but does not follow a specific diet at home. Current Diet Order/Nutrition S: Cardiac Pertinent Meds Current Medications Medications (Trade) Dose Ordered Sig/Ermelinda PRN Reason Start Time Stop Time Status Last Admin Albuterol/ Ipratropium (Duoneb 0.5 Mg-3 Mg/3 ml Soln) 3 ml RTQID 04/04/18 17:00 05/04/18 16:59 04/04/18 20:21 Bupropion HCl (Wellbutrin Xl) 150 mg DAILY 04/05/18 09:00 05/05/18 08:59 04/05/18 08:53 Ceftriaxone Sodium 1000 mg/ Sodium Chloride 100 ml @ 100 mls/hr Q24HRS 04/04/18 19:00 05/04/18 18:59 04/04/18 19:31 Duloxetine HCl (Cymbalta) 30 mg DAILY 04/05/18 09:00 05/05/18 08:59 04/05/18 08:52 Levothyroxine Sodium (Synthroid) 50 mcg DAILY 04/05/18 09:00 05/05/18 08:59 04/05/18 08:53 Loratadine (Claritin) 10 mg DAILY 04/05/18 09:00 05/05/18 08:59 04/05/18 08:53 Meclizine HCl (Antivert) 25 mg TID PRN DIZZINESS 04/04/18 21:30 05/04/18 21:29 Metformin HCl (Glucophage) 1,000 mg BID 04/04/18 21:00 05/04/18 20:59 04/05/18 08:53 Methylprednisolone Sodium Succinate (Solu-Medrol) 40 mg Q8HR 04/04/18 22:00 05/04/18 21:59 04/05/18 05:25 Montelukast Sodium (Singulair) 10 mg DAILY 04/05/18 09:00 05/05/18 08:59 04/05/18 08:52 Naproxen (Naproxen) 250 mg BID PRN PAIN 5 - 7 04/04/18 22:00 05/04/18 21:59 Pantoprazole Sodium (Protonix) 40 mg DAILY 04/05/18 09:00 05/05/18 08:59 04/05/18 08:52 Simvastatin (Zocor) 20 mg DAILY 04/05/18 09:00 05/05/18 08:59 04/05/18 08:53 Pertinent Labs Laboratory Tests 04/04/18 15:43: White Blood Count 16.1H, Red Blood Count 3.89L, Hemoglobin 11.6L, Hematocrit 37.6, Mean Corpuscular Volume 96.7, Mean Corpuscular Hemoglobin 29.8, Mean Corpuscular Hemoglobin Concent 30.9L, Red Cell Distribution Width 13.9, Platelet Count 438H, Mean Platelet Volume 8.8, Neutrophils (%) (Auto) 81.8, Lymphocytes (%) (Auto) 9.6L, Monocytes (%) (Auto) 7.6, Neutrophils # (Auto) 13.2H, Lymphocytes # (Auto) 1.6, Monocytes # (Auto) 1.2H, Absolute Immature Granulocyte (auto 0.04, Eosinophils % 0.6, Basophils % 0.2, Basophils # 0.0, Erythrocyte Sedimentation Rate 49H, Eosinophil Count 0.1, Prothrombin Time 9.0L , Prothrombin Time INR (Non-Therap) 0.9, Sodium Level 134, Potassium Level 4.0, Chloride Level 99.0, Carbon Dioxide Level 27.4, Anion Gap 11.6, Blood Urea Nitrogen 13, Creatinine 0.94, Estimated GFR () 69.0, BUN/ Creatinine Ratio 13.0, Glucose Level 122H, Calcium Level 11.2H, Total Bilirubin 0.3, Aspartate Amino Transf (AST/SGOT) 11, Alanine Aminotransferase (ALT/SGPT) 13, Alkaline Phosphatase 170H, Total Creatine Kinase 70, Troponin I < 0.02, C- Reactive Protein 12.74H, Pro-B-Type Natriuretic Peptide 1116H, Total Protein 7.2 , Albumin 3.5, Globulin 3.7, Percent Immature Gran (Cell Imm) 0.20 Height (Feet): 5 Height (Inches): 2 Current Weight: 138 %IBW: 125 Weight Status: Appropriate GI Symptoms: None Food Allergies: No Cultural/Ethnic/Jain Sherrill: None reported BEE in Kcals: Use Current Weight Calories/Kcals/K-35 kcal/kg Kcals Calculated: 6082-4047 Protein: Use Current Weight Protein g/k.0-1.5 g/kg Protein Calculated: 62-93g Fluid: ml: 1455-8521 or 1mL/kcal Nutritional Problem: Nutr. Problems Present Problems: Increased Energy Intake Etiology: COPD Signs/Symptoms: Pulse in the 90-100s, Respiratory rate 18-20 Body Fat Depletion (Severe): Mod to Severe Depletion Muscle Mass (Severe): Mod to Severe Depletion Protein-Calorie Malnutrition: Severe RD Comments: Intervention: 1. Continue current diet Monitor/evaluate: 1. Weight status 2. po intake 3. Blood glucose levels Expected Outcomes Goal: 1. The patient will consume 85-100% of meals provided to meet 100% of estimated energy needs over the next 2-3 days Discharge plan: 1. Discharge planning in progress Malnutrtion/Nutrition Risk Edu: Yes Basic COPD diet education ( High Calorie, High Protein) WALTER HODGE RD Apr 05, 2018 10:02
[2018-04-05] MEDS: DUONEB 0.5 MG-3 MG/3 ML SOLN IH SCH ×4 (10:34→20:20)
--- NOTE | 2018-04-05 11:58 | NUR ---
DISCHARGE PLAN CASE MANAGEMENT VISITED WITH PATIENT CONCERNING DISCHARGE PLAN AND NEEDS. LIVES AT HOME ALONE. INDEPENDENT OF ADLS. HAS GREAT FAMILY SUPPORT. PATIENT STATED SHE HAS HAD MORE WEAKNESS LATELY AND REQUESTED TO GO TO [facility] AN OUTPATIENT FOR PT/OT. CHOICE LETTER SIGNED AND CM SPOKE RENZO AT [facility] ABOUT REFERRAL. HER FIRST APPOINTMENT IS April, @ 1145AM FOR PT/OT EVAL. HAS FINANCIAL ABILITY TO PAY FOR MEDICATIONS UPON DISCHARGE IF NEEDED. DR. CHIU IS HER PRIMARY PHYSICIAN. DISCHARGE GOAL IS TO DISCHARGE HOME WITH THERAPY AT [facility]. DENIES FURTHER NEEDS AT THIS TIME.
[2018-04-05 17:19] VITALS: BP 137/53
--- NOTE | 2018-04-05 17:53 | PRM.PN ---
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 Patient History: Asthma 33 FATHER, Chronic obstructive pulmonary disease 33 FATHER, G8 BROTHER, G8 SISTER, Congestive heart failure 33 FATHER, Diabetes mellitus 32 MOTHER, 19 CHILD FH: back pain 19 CHILD FH: coronary artery disease G8 BROTHER, FH: drug dependence 19 CHILD Hypertension 32 MOTHER, G8 SISTER, Unknown G8 SISTER, No Family History of: Alzheimer's disease Cerebrovascular disorder Diabetes insipidus Parkinson's disease VTE VTE Risk Total Score: 5 VTE Risk Score VTE Risk: Score 0-1 = Low Risk (Aggressive mobilization; early ambulation; no VTE prophylaxis required) Score 2: Moderate Risk (Intermittent/Pneumatic Compression Device OR Lovenox/Heparin/Coumadin) Score 3-4: High Risk (Intermittent/Pneumatic Compression Device AND Lovenox/Heparin/Coumadin) Score > or =5: Highest Risk (Intermittent/Pneumatic Compression Device AND Lovenox/Heparin/Coumadin) Antico:Hep/LMWH/Coum/Xarelto: Yes Mechanical device ordered: Yes Review of Systems Constitutional: Weakness, Malaise; No: Fever, Chills, Sweats Eyes: No: Pain, Vision change, Conjunctivae inflammation ENT: Nose congestion; No: Ear pain, Ear discharge, Nose pain Respiratory: Cough, SOB with excertion Cardiovascular: No: Chest Pain, Palpitations, Orthopnea, Paroxysmal Noc. Dyspnea Gastrointestinal: No: Nausea, Vomiting, Abdominal Pain Genitourinary: No Dysuria, No Frequency, No Incontinence, No Hematuria Musculoskeletal: No: neck pain, shoulder pain, arm pain, back pain, hand pain, leg pain Skin: No: Lesions, Jaundice, Bruising Neurological: No: Confusion, Seizures Allergies: Coded Allergies: Penicillins (Unverified Allergy, Unknown, SWELLING,SICK TO STOMACH, ) codeine (Unverified Adverse Reaction, Severe, 07/24/17) DIZZINESS Scheduled Bupropion Hcl (Wellbutrin Xl), 1 TAB PO DAILY, (Reported) Duloxetine Hcl (Cymbalta), 1 CAP PO DAILY, (Reported) Fluticasone/Salmeterol (Advair 500-50 Diskus), 1 PUFF IH BID, (Reported) Guaifenesin (Mucinex), 1 TAB PO BID Ipratropium/Albuterol Sulfate (Iprat-Albut 0.5-3(2.5) Mg/3 Ml), 3 ML IH QID Levothyroxine Sodium (Levothyroxine Sodium), 50 MCG PO DIRECTED, (Reported) Loratadine (Claritin), 1 TAB PO DAILY, (Reported) Metformin Hcl (Metformin Hcl), 1 TAB PO BID Montelukast Sodium (Singulair), 10 MG PO DAILY, (Reported) Naproxen Sodium (Aleve), 220 MG PO BID, (Reported) Pantoprazole Sodium (Pantoprazole Sodium), 40 MG PO DAILY, (Reported) Prednisone (Prednisone), 2 MG PO DAILY Simvastatin (Simvastatin), 20 MG PO DAILY, (Reported) Scheduled PRN Albuterol Sulfate (Ventolin Hfa), 18 GM IH QID PRN for SHORTNESS OF BREATH, ( Reported) Meclizine Hcl (Meclizine Hcl), 25 MG PO TID PRN for DIZZINESS, (Reported) Discontinued Medications Cefdinir (Cefdinir), 1 CAP PO BID Discontinued Reason: HOLD Fexofenadine/Pseudoephedrine (Rocio-D 24 Hour Tablet), 1 TAB PO DAILY, ( Reported) Discontinued Reason: No Longer Taking Tramadol Hcl (Tramadol Hcl), 50 MG PO TID, (Reported) Discontinued Reason: No Longer Taking Objective Vitals and I/O Vital Sign - Last 24 Hours 04/04/18 04/04/18 04/04/18 04/04/18 19:51 19:57 20:21 20:28 Temp 98.5 98.5 Pulse 80 78 78 Resp 18 18 18 B/P (MAP) 146/77 (100) Pulse Ox 95 92 96 O2 Delivery Room Air Room Air 04/05/18 04/05/18 04/05/18 04/05/18 01:30 05:30 08:04 09:00 Temp 98.6 98.3 98.6 98.6 98.3 98.6 Pulse 78 87 84 Resp 18 18 18 B/P (MAP) 142/74 (96) 136/75 (95) 147/63 (91) Pulse Ox 93 96 95 O2 Delivery Room Air Nasal Canula Nasal Canula Nasal Cannula O2 Flow Rate 2.00 2.00 2.00 04/05/18 04/05/18 04/05/18 04/05/18 10:29 10:37 10:38 13:52 Pulse 81 85 81 78 Resp 16 16 16 14 Pulse Ox 97 97 97 90 O2 Delivery Nasal Cannula O2 Flow Rate 2.00 FiO2 28 04/05/18 04/05/18 04/05/18 04/05/18 14:08 16:44 16:51 17:19 Temp 98.2 98.2 Pulse 78 104 103 101 Resp 14 18 18 18 Pulse Ox 90 84 90 91 O2 Delivery Nasal Canula O2 Flow Rate 2.00 Intake and Output 04/04/18 04/04/18 04/05/18 15:01 23:01 07:01 Intake Total 740 ml 450 ml Output Total 1300 ml Balance 740 ml -850 ml General: Alert, Oriented X3, Cooperative, No acute distress HEENT: Atraumatic, PERRLA, EOMI, Mucous membr. moist/pink Neck: Supple, No JVD, No thyromegaly Lungs: Other (decreased BS at bases B) Heart: Normal S1, Normal S2 Abdomen: Normal bowel sounds, Soft Extremities: No clubbing, No cyanosis Skin: No rashes Neuro: Normal speech Psych/Mental Status: Mental status NL, Mood NL Course Sepsis Screening Results: Posi: NEGATIVE Sepsis Qualifier/Stage: NO DEFINITE RISK Vitals & review Data Vital Sign - Last 24 Hours 04/04/18 04/04/18 04/04/18 04/04/18 19:51 19:57 20:21 20:28 Temp 98.5 98.5 Pulse 80 78 78 Resp 18 18 18 B/P (MAP) 146/77 (100) Pulse Ox 95 92 96 O2 Delivery Room Air Room Air 04/05/18 04/05/18 04/05/18 04/05/18 01:30 05:30 08:04 09:00 Temp 98.6 98.3 98.6 98.6 98.3 98.6 Pulse 78 87 84 Resp 18 18 18 B/P (MAP) 142/74 (96) 136/75 (95) 147/63 (91) Pulse Ox 93 96 95 O2 Delivery Room Air Nasal Canula Nasal Canula Nasal Cannula O2 Flow Rate 2.00 2.00 2.00 04/05/18 04/05/18 04/05/18 04/05/18 10:29 10:37 10:38 13:52 Pulse 81 85 81 78 Resp 16 16 16 14 Pulse Ox 97 97 97 90 O2 Delivery Nasal Cannula O2 Flow Rate 2.00 FiO2 28 04/05/18 04/05/18 04/05/18 04/05/18 14:08 16:44 16:51 17:19 Temp 98.2 98.2 Pulse 78 104 103 101 Resp 14 18 18 18 Pulse Ox 90 84 90 91 O2 Delivery Nasal Canula O2 Flow Rate 2.00 Intake and Output 04/04/18 04/04/18 04/05/18 15:01 23:01 07:01 Intake Total 740 ml 450 ml Output Total 1300 ml Balance 740 ml -850 ml Laboratory Tests Test 04/04/18 15:43 White Blood Count 16.1 10^3/uL Red Blood Count 3.89 10^6/uL Hemoglobin 11.6 g/dL Hematocrit 37.6 % Mean Corpuscular Volume 96.7 fL Mean Corpuscular Hemoglobin 29.8 pg Mean Corpuscular Hemoglobin Concent 30.9 g/dL Red Cell Distribution Width 13.9 % Platelet Count 438 10^3/uL Mean Platelet Volume 8.8 fL Neutrophils (%) (Auto) 81.8 % Lymphocytes (%) (Auto) 9.6 % Monocytes (%) (Auto) 7.6 % Neutrophils # (Auto) 13.2 10^3/uL Lymphocytes # (Auto) 1.6 10^3/uL Monocytes # (Auto) 1.2 10^3/uL Absolute Immature Granulocyte (auto 0.04 10^3 u/L Eosinophils % 0.6 % Basophils % 0.2 % Basophils # 0.0 10^3/uL Erythrocyte Sedimentation Rate 49 mm/hr Eosinophil Count 0.1 10^3/uL Prothrombin Time 9.0 SEC Prothrombin Time INR (Non-Therap) 0.9 Sodium Level 134 mmol/L Potassium Level 4.0 mmol/L Chloride Level 99.0 mmol/L Carbon Dioxide Level 27.4 mmol/L Anion Gap 11.6 Blood Urea Nitrogen 13 mg/dL Creatinine 0.94 mg/dL Estimated GFR () 69.0 BUN/Creatinine Ratio 13.0 Glucose Level 122 mg/dL Calcium Level 11.2 mg/dL Total Bilirubin 0.3 mg/dL Aspartate Amino Transf (AST/SGOT) 11 U/L Alanine Aminotransferase (ALT/SGPT) 13 U/L Alkaline Phosphatase 170 U/L Total Creatine Kinase 70 U/L Troponin I < 0.02 ng/mL C-Reactive Protein 12.74 mg/dL Pro-B-Type Natriuretic Peptide 1116 pg/mL Total Protein 7.2 g/dL Albumin 3.5 g/dL Globulin 3.7 Percent Immature Gran (Cell Imm) 0.20 % Current Medications Medications (Trade) Dose Ordered Sig/Ermelinda PRN Reason Start Time Stop Time Status Last Admin Albuterol/ Ipratropium (Duoneb 0.5 Mg-3 Mg/3 ml Soln) 3 ml RTQID 04/04/18 17:00 05/04/18 16:59 04/05/18 16:49 Bupropion HCl (Wellbutrin Xl) 150 mg DAILY 04/05/18 09:00 05/05/18 08:59 04/05/18 08:53 Ceftriaxone Sodium 1000 mg/ Sodium Chloride 100 ml @ 100 mls/hr Q24HRS 04/04/18 19:00 05/04/18 18:59 04/04/18 19:31 Duloxetine HCl (Cymbalta) 30 mg DAILY 04/05/18 09:00 05/05/18 08:59 04/05/18 08:52 Levothyroxine Sodium (Synthroid) 50 mcg DAILY 04/05/18 09:00 05/05/18 08:59 04/05/18 08:53 Loratadine (Claritin) 10 mg DAILY 04/05/18 09:00 05/05/18 08:59 04/05/18 08:53 Meclizine HCl (Antivert) 25 mg TID PRN DIZZINESS 04/04/18 21:30 05/04/18 21:29 Metformin HCl (Glucophage) 1,000 mg BID 04/04/18 21:00 05/04/18 20:59 04/05/18 08:53 Methylprednisolone Sodium Succinate (Solu-Medrol) 40 mg Q8HR 04/04/18 22:00 05/04/18 21:59 04/05/18 14:00 Montelukast Sodium (Singulair) 10 mg DAILY 04/05/18 09:00 05/05/18 08:59 04/05/18 08:52 Naproxen (Naproxen) 250 mg BID PRN PAIN 5 - 7 04/04/18 22:00 05/04/18 21:59 Pantoprazole Sodium (Protonix) 40 mg DAILY 04/05/18 09:00 05/05/18 08:59 04/05/18 08:52 Simvastatin (Zocor) 20 mg DAILY 04/05/18 09:00 05/05/18 08:59 04/05/18 08:53 Assessment/Plan Assessment/Plan Assessment/Plan 82 yo female with sinusitis, COPD, DM, HTN - cont IV abx and neb tx - IS and flutter valve - add flonase - recheck labs in the morning - follow sugars ANA MARIA CHIU MD Apr 05, 2018 17:53
[2018-04-05] MEDS: LOVENOX SQ SCH (18:00)
[2018-04-05 19:00] VITALS: BP 155/75
[2018-04-05] MEDS: ROCEPHIN 1,000 MG in NS 100ML 100 ML IV SCH (20:30)
[2018-04-06] VITALS: BP 155/74
[2018-04-06 04:00] VITALS: BP 153/84
[2018-04-06 04:55] LABS: BASOPHIL % 0.1 % (0.0-0.2); HEMOGLOBIN 10.5 g/dL (12.0-15.0); LYMPHOCYTES # 1.1 10^3/uL (1.0-4.8); LYMPHOCYTES % 12.8 % (24.0-44.0); MEAN CELL HGB 29.6 pg (26-34); MEAN CELL HGB CONCENTRATION 31.6 g/dL (33-37); MEAN CORP VOLUME 93.5 fL (78-100); MEAN PLATELET VOLUME 8.8 fL (7.8-11.0); MONOCYTES # 0.3 10^3/uL (0.3-0.8); MONOCYTES % 2.9 % (5.0-12.0); NEUTROPHIL # 7.5 10^3/uL (1.8-7.7); RED CELL DISTRIBUTION WIDTH 13.5 % (11.5-14.5); WHITE BLOOD CELL 8.9 10^3/uL (4.5-11.0)
[2018-04-06 05:06] LABS: CALCIUM 10.8 mg/dL (8.4-10.5); CARBON DIOXIDE 25.4 mmol/L (20.0-32)
[2018-04-06] MEDS: SOLU-MEDROL IV SCH ×3 (06:06→20:55)
[2018-04-06 08:12] VITALS: BP 150/72
[2018-04-06] MEDS: WELLBUTRIN XL PO SCH (08:35)
[2018-04-06] MEDS: GLUCOPHAGE PO SCH ×2 (08:35→20:55)
[2018-04-06] MEDS: PROTONIX PO SCH (08:35)
[2018-04-06] MEDS: CYMBALTA PO SCH (08:36)
[2018-04-06] MEDS: CLARITIN PO SCH (08:36)
[2018-04-06] MEDS: SYNTHROID PO SCH (08:36)
[2018-04-06] MEDS: ZOCOR PO SCH (08:36)
[2018-04-06] MEDS: SINGULAIR PO SCH (08:36)
[2018-04-06] MEDS: DUONEB 0.5 MG-3 MG/3 ML SOLN IH SCH ×4 (09:25→20:06)
[2018-04-06 12:08] VITALS: BP 121/59
[2018-04-06] MEDS ORDERED: VENTOLIN IH PRN (14:00)
--- NOTE | 2018-04-06 15:26 | PRM.PN ---
Subjective Subjective Date: Apr 06, 2018 Time: 13:00 Subjective Pt having some breathing issues overnight Patient History: Asthma 33 FATHER, Chronic obstructive pulmonary disease 33 FATHER, G8 BROTHER, G8 SISTER, Congestive heart failure 33 FATHER, Diabetes mellitus 32 MOTHER, 19 CHILD FH: back pain 19 CHILD FH: coronary artery disease G8 BROTHER, FH: drug dependence 19 CHILD Hypertension 32 MOTHER, G8 SISTER, Unknown G8 SISTER, No Family History of: Alzheimer's disease Cerebrovascular disorder Diabetes insipidus Parkinson's disease VTE VTE Risk Total Score: 5 VTE Risk Score VTE Risk: Score 0-1 = Low Risk (Aggressive mobilization; early ambulation; no VTE prophylaxis required) Score 2: Moderate Risk (Intermittent/Pneumatic Compression Device OR Lovenox/Heparin/Coumadin) Score 3-4: High Risk (Intermittent/Pneumatic Compression Device AND Lovenox/Heparin/Coumadin) Score > or =5: Highest Risk (Intermittent/Pneumatic Compression Device AND Lovenox/Heparin/Coumadin) Antico:Hep/LMWH/Coum/Xarelto: Yes Mechanical device ordered: Yes Review of Systems Constitutional: Weakness, Malaise; No: Fever, Chills, Sweats Eyes: No: Pain, Vision change, Conjunctivae inflammation ENT: Nose congestion; No: Ear pain, Ear discharge, Nose pain Respiratory: Cough, SOB with excertion Cardiovascular: No: Chest Pain, Palpitations, Orthopnea, Paroxysmal Noc. Dyspnea Gastrointestinal: No: Nausea, Vomiting, Abdominal Pain Genitourinary: No Dysuria, No Frequency, No Incontinence, No Hematuria Musculoskeletal: No: neck pain, shoulder pain, arm pain, back pain, hand pain, leg pain Skin: No: Lesions, Jaundice, Bruising Neurological: No: Confusion, Seizures Allergies: Coded Allergies: Penicillins (Unverified Allergy, Unknown, SWELLING,SICK TO STOMACH, ) codeine (Unverified Adverse Reaction, Severe, 07/24/17) DIZZINESS Scheduled Bupropion Hcl (Wellbutrin Xl), 1 TAB PO DAILY, (Reported) Duloxetine Hcl (Cymbalta), 1 CAP PO DAILY, (Reported) Fluticasone/Salmeterol (Advair 500-50 Diskus), 1 PUFF IH BID, (Reported) Guaifenesin (Mucinex), 1 TAB PO BID Ipratropium/Albuterol Sulfate (Iprat-Albut 0.5-3(2.5) Mg/3 Ml), 3 ML IH QID Levothyroxine Sodium (Levothyroxine Sodium), 50 MCG PO DIRECTED, (Reported) Loratadine (Claritin), 1 TAB PO DAILY, (Reported) Metformin Hcl (Metformin Hcl), 1 TAB PO BID Montelukast Sodium (Singulair), 10 MG PO DAILY, (Reported) Naproxen Sodium (Aleve), 220 MG PO BID, (Reported) Pantoprazole Sodium (Pantoprazole Sodium), 40 MG PO DAILY, (Reported) Prednisone (Prednisone), 2 MG PO DAILY Simvastatin (Simvastatin), 20 MG PO DAILY, (Reported) Scheduled PRN Albuterol Sulfate (Ventolin Hfa), 18 GM IH QID PRN for SHORTNESS OF BREATH, ( Reported) Meclizine Hcl (Meclizine Hcl), 25 MG PO TID PRN for DIZZINESS, (Reported) Discontinued Medications Cefdinir (Cefdinir), 1 CAP PO BID Discontinued Reason: HOLD Fexofenadine/Pseudoephedrine (Rocio-D 24 Hour Tablet), 1 TAB PO DAILY, ( Reported) Discontinued Reason: No Longer Taking Tramadol Hcl (Tramadol Hcl), 50 MG PO TID, (Reported) Discontinued Reason: No Longer Taking Objective Vitals and I/O Vital Sign - Last 24 Hours 04/05/18 04/05/18 04/05/18 04/05/18 16:44 16:51 17:19 19:00 Temp 98.2 98.1 98.2 98.1 Pulse 104 103 101 97 Resp 18 18 18 20 B/P (MAP) 137/53 (81) 155/75 (101) Pulse Ox 84 90 91 95 O2 Delivery Nasal Canula Nasal Canula O2 Flow Rate 2.00 2.00 04/05/18 04/05/18 04/05/18 04/05/18 19:56 20:20 20:24 20:30 Pulse 96 96 94 Resp 16 16 16 Pulse Ox 93 93 93 O2 Delivery Nasal Cannula Room Air O2 Flow Rate 2.00 2.00 FiO2 28 04/06/18 04/06/18 04/06/18 04/06/18 00:00 04:00 07:30 08:12 Temp 97.6 97.7 98.1 97.6 97.7 98.1 Pulse 98 91 88 Resp 20 18 18 B/P (MAP) 155/74 (101) 153/84 (107) 150/72 (98) Pulse Ox 94 96 95 O2 Delivery Nasal Canula Nasal Canula Nasal Cannula Nasal Canula O2 Flow Rate 2.00 2.00 2.00 04/06/18 04/06/18 04/06/18 04/06/18 09:26 09:26 09:30 12:08 Temp 97.7 97.7 Pulse 88 88 88 96 Resp 18 18 18 18 B/P (MAP) 121/59 (79) Pulse Ox 96 96 96 96 O2 Delivery Nasal Cannula Room Air O2 Flow Rate 2.00 04/06/18 04/06/18 13:19 13:19 Pulse 94 94 Resp 18 18 Pulse Ox 94 94 Intake and Output 04/05/18 04/05/18 04/06/18 15:01 23:01 07:01 Intake Total 352 ml 240 ml 240 ml Output Total 1200 ml 375 ml Balance 352 ml -960 ml -135 ml General: Alert, Oriented X3, Cooperative, No acute distress HEENT: Atraumatic, PERRLA, EOMI, Mucous membr. moist/pink Neck: Supple, No JVD Lungs: Other (decreased BS B) Heart: Regular rate, Normal S1, Normal S2 Abdomen: Normal bowel sounds, Soft, No tenderness Extremities: No clubbing, No cyanosis Skin: No breakdown Neuro: Normal speech Psych/Mental Status: Mental status NL, Mood NL Course Sepsis Screening Results: Posi: NEGATIVE Sepsis Qualifier/Stage: NO DEFINITE RISK Vitals & review Data Vital Sign - Last 24 Hours 04/04/18 04/04/18 04/04/18 04/04/18 19:51 19:57 20:21 20:28 Temp 98.5 98.5 Pulse 80 78 78 Resp 18 18 18 B/P (MAP) 146/77 (100) Pulse Ox 95 92 96 O2 Delivery Room Air Room Air 04/05/18 04/05/18 04/05/18 04/05/18 01:30 05:30 08:04 09:00 Temp 98.6 98.3 98.6 98.6 98.3 98.6 Pulse 78 87 84 Resp 18 18 18 B/P (MAP) 142/74 (96) 136/75 (95) 147/63 (91) Pulse Ox 93 96 95 O2 Delivery Room Air Nasal Canula Nasal Canula Nasal Cannula O2 Flow Rate 2.00 2.00 2.00 04/05/18 04/05/18 04/05/18 04/05/18 10:29 10:37 10:38 13:52 Pulse 81 85 81 78 Resp 16 16 16 14 Pulse Ox 97 97 97 90 O2 Delivery Nasal Cannula O2 Flow Rate 2.00 FiO2 28 04/05/18 04/05/18 04/05/18 04/05/18 14:08 16:44 16:51 17:19 Temp 98.2 98.2 Pulse 78 104 103 101 Resp 14 18 18 18 Pulse Ox 90 84 90 91 O2 Delivery Nasal Canula O2 Flow Rate 2.00 Intake and Output 04/04/18 04/04/18 04/05/18 15:01 23:01 07:01 Intake Total 740 ml 450 ml Output Total 1300 ml Balance 740 ml -850 ml Laboratory Tests Test 04/04/18 15:43 White Blood Count 16.1 10^3/uL Red Blood Count 3.89 10^6/uL Hemoglobin 11.6 g/dL Hematocrit 37.6 % Mean Corpuscular Volume 96.7 fL Mean Corpuscular Hemoglobin 29.8 pg Mean Corpuscular Hemoglobin Concent 30.9 g/dL Red Cell Distribution Width 13.9 % Platelet Count 438 10^3/uL Mean Platelet Volume 8.8 fL Neutrophils (%) (Auto) 81.8 % Lymphocytes (%) (Auto) 9.6 % Monocytes (%) (Auto) 7.6 % Neutrophils # (Auto) 13.2 10^3/uL Lymphocytes # (Auto) 1.6 10^3/uL Monocytes # (Auto) 1.2 10^3/uL Absolute Immature Granulocyte (auto 0.04 10^3 u/L Eosinophils % 0.6 % Basophils % 0.2 % Basophils # 0.0 10^3/uL Erythrocyte Sedimentation Rate 49 mm/hr Eosinophil Count 0.1 10^3/uL Prothrombin Time 9.0 SEC Prothrombin Time INR (Non-Therap) 0.9 Sodium Level 134 mmol/L Potassium Level 4.0 mmol/L Chloride Level 99.0 mmol/L Carbon Dioxide Level 27.4 mmol/L Anion Gap 11.6 Blood Urea Nitrogen 13 mg/dL Creatinine 0.94 mg/dL Estimated GFR () 69.0 BUN/Creatinine Ratio 13.0 Glucose Level 122 mg/dL Calcium Level 11.2 mg/dL Total Bilirubin 0.3 mg/dL Aspartate Amino Transf (AST/SGOT) 11 U/L Alanine Aminotransferase (ALT/SGPT) 13 U/L Alkaline Phosphatase 170 U/L Total Creatine Kinase 70 U/L Troponin I < 0.02 ng/mL C-Reactive Protein 12.74 mg/dL Pro-B-Type Natriuretic Peptide 1116 pg/mL Total Protein 7.2 g/dL Albumin 3.5 g/dL Globulin 3.7 Percent Immature Gran (Cell Imm) 0.20 % Current Medications Medications (Trade) Dose Ordered Sig/Ermelinda PRN Reason Start Time Stop Time Status Last Admin Albuterol/ Ipratropium (Duoneb 0.5 Mg-3 Mg/3 ml Soln) 3 ml RTQID 04/04/18 17:00 05/04/18 16:59 04/05/18 16:49 Bupropion HCl (Wellbutrin Xl) 150 mg DAILY 04/05/18 09:00 05/05/18 08:59 04/05/18 08:53 Ceftriaxone Sodium 1000 mg/ Sodium Chloride 100 ml @ 100 mls/hr Q24HRS 04/04/18 19:00 05/04/18 18:59 04/04/18 19:31 Duloxetine HCl (Cymbalta) 30 mg DAILY 04/05/18 09:00 05/05/18 08:59 04/05/18 08:52 Levothyroxine Sodium (Synthroid) 50 mcg DAILY 04/05/18 09:00 05/05/18 08:59 04/05/18 08:53 Loratadine (Claritin) 10 mg DAILY 04/05/18 09:00 05/05/18 08:59 04/05/18 08:53 Meclizine HCl (Antivert) 25 mg TID PRN DIZZINESS 04/04/18 21:30 05/04/18 21:29 Metformin HCl (Glucophage) 1,000 mg BID 04/04/18 21:00 05/04/18 20:59 04/05/18 08:53 Methylprednisolone Sodium Succinate (Solu-Medrol) 40 mg Q8HR 04/04/18 22:00 05/04/18 21:59 04/05/18 14:00 Montelukast Sodium (Singulair) 10 mg DAILY 04/05/18 09:00 05/05/18 08:59 04/05/18 08:52 Naproxen (Naproxen) 250 mg BID PRN PAIN 5 - 7 04/04/18 22:00 05/04/18 21:59 Pantoprazole Sodium (Protonix) 40 mg DAILY 04/05/18 09:00 05/05/18 08:59 04/05/18 08:52 Simvastatin (Zocor) 20 mg DAILY 04/05/18 09:00 05/05/18 08:59 04/05/18 08:53 Assessment/Plan Assessment/Plan Assessment/Plan 82 yo female with sinusitis, COPD, Type 2 DM, HTN - cont IV abx - add albuterol, pulmicort - taper steroids - follow sugars ANA MARIA CHIU MD Apr 06, 2018 15:26
--- NOTE | 2018-04-06 16:00 | NUR ---
Pt REQUESTED PRONE JUICE IN ORDER TO HAVE BM, OFFERED PRUNE JUICE.
[2018-04-06 16:24] VITALS: BP 142/65
--- NOTE | 2018-04-06 17:30 | NUR ---
STATUS FOLLOW UP ON BM, Pt STATES THAT SHE ALMOST HAD BM, BUT NOT, STATES "WILL WAIT FOR A WHILE".
[2018-04-06] MEDS: LOVENOX SQ SCH (17:54)
--- NOTE | 2018-04-06 18:50 | NUR ---
BEDSIDE REPORT BEDSIDE REPORT GIVEN TO THE NIGHT NURSE APOLONIA TALLEY.
[2018-04-06] MEDS: ROCEPHIN 1,000 MG in NS 100ML 100 ML IV SCH (19:36)
[2018-04-06] MEDS: PULMICORT IH SCH (20:06)
[2018-04-06] MEDS: RESTORIL PO PRN (20:57)
--- NOTE | 2018-04-06 21:00 | NUR ---
DR CHIU NOTIED OF PT REQUEST FOR LAXATIVE, REPORTS NO BM SINCE 04/02/18. RECEIVED NEW ORDER
--- NOTE | 2018-04-06 21:14 | NUR ---
MILK OF MAG GIVEN PER ORDER
[2018-04-06] MEDS ORDERED: MILK OF MAGNESIA PO ONE (21:30)
[2018-04-07 00:07] VITALS: BP 145/69
[2018-04-07 04:00] VITALS: BP 156/67
--- NOTE | 2018-04-07 06:46 | NUR ---
REPORT TO MAY YOO
[2018-04-07 08:47] VITALS: BP 163/83
[2018-04-07] MEDS: GLUCOPHAGE PO SCH ×2 (08:49→20:42)
[2018-04-07] MEDS: ZOCOR PO SCH (08:49)
[2018-04-07] MEDS: CYMBALTA PO SCH (08:50)
[2018-04-07] MEDS: SINGULAIR PO SCH (08:50)
[2018-04-07] MEDS: SYNTHROID PO SCH (08:50)
[2018-04-07] MEDS: PROTONIX PO SCH (08:50)
[2018-04-07] MEDS: WELLBUTRIN XL PO SCH (08:50)
[2018-04-07] MEDS: SOLU-MEDROL IV SCH ×2 (08:50→20:42)
[2018-04-07] MEDS: CLARITIN PO SCH (08:50)
[2018-04-07] MEDS: PULMICORT IH SCH ×2 (09:48→20:40)
[2018-04-07] MEDS: DUONEB 0.5 MG-3 MG/3 ML SOLN IH SCH ×4 (09:48→20:40)
--- NOTE | 2018-04-07 11:56 | PRM.PN ---
Subjective Subjective Date: Apr 07, 2018 Time: 11:45 Subjective no acute changes; taking neb tx with some relief Patient History: Asthma 33 FATHER, Chronic obstructive pulmonary disease 33 FATHER, G8 BROTHER, G8 SISTER, Congestive heart failure 33 FATHER, Diabetes mellitus 32 MOTHER, 19 CHILD FH: back pain 19 CHILD FH: coronary artery disease G8 BROTHER, FH: drug dependence 19 CHILD Hypertension 32 MOTHER, G8 SISTER, Unknown G8 SISTER, No Family History of: Alzheimer's disease Cerebrovascular disorder Diabetes insipidus Parkinson's disease VTE VTE Risk Total Score: 5 VTE Risk Score VTE Risk: Score 0-1 = Low Risk (Aggressive mobilization; early ambulation; no VTE prophylaxis required) Score 2: Moderate Risk (Intermittent/Pneumatic Compression Device OR Lovenox/Heparin/Coumadin) Score 3-4: High Risk (Intermittent/Pneumatic Compression Device AND Lovenox/Heparin/Coumadin) Score > or =5: Highest Risk (Intermittent/Pneumatic Compression Device AND Lovenox/Heparin/Coumadin) Antico:Hep/LMWH/Coum/Xarelto: Yes Mechanical device ordered: Yes Review of Systems Constitutional: Malaise; No: Fever, Chills, Sweats Eyes: No: Pain, Vision change, Conjunctivae inflammation ENT: Nose congestion; No: Ear pain, Ear discharge, Nose pain Respiratory: Cough, SOB with excertion Cardiovascular: No: Chest Pain, Palpitations, Orthopnea, Paroxysmal Noc. Dyspnea Gastrointestinal: No: Nausea, Vomiting, Abdominal Pain Genitourinary: No Dysuria, No Frequency, No Incontinence, No Hematuria Musculoskeletal: No: neck pain, shoulder pain, arm pain, back pain, hand pain, leg pain Skin: No: Lesions, Jaundice, Bruising Neurological: No: Confusion, Seizures Allergies: Coded Allergies: Penicillins (Unverified Allergy, Unknown, SWELLING,SICK TO STOMACH, ) codeine (Unverified Adverse Reaction, Severe, 07/24/17) DIZZINESS Scheduled Bupropion Hcl (Wellbutrin Xl), 1 TAB PO DAILY, (Reported) Duloxetine Hcl (Cymbalta), 1 CAP PO DAILY, (Reported) Fluticasone/Salmeterol (Advair 500-50 Diskus), 1 PUFF IH BID, (Reported) Guaifenesin (Mucinex), 1 TAB PO BID Ipratropium/Albuterol Sulfate (Iprat-Albut 0.5-3(2.5) Mg/3 Ml), 3 ML IH QID Levothyroxine Sodium (Levothyroxine Sodium), 50 MCG PO DIRECTED, (Reported) Loratadine (Claritin), 1 TAB PO DAILY, (Reported) Metformin Hcl (Metformin Hcl), 1 TAB PO BID Montelukast Sodium (Singulair), 10 MG PO DAILY, (Reported) Naproxen Sodium (Aleve), 220 MG PO BID, (Reported) Pantoprazole Sodium (Pantoprazole Sodium), 40 MG PO DAILY, (Reported) Prednisone (Prednisone), 2 MG PO DAILY Simvastatin (Simvastatin), 20 MG PO DAILY, (Reported) Scheduled PRN Albuterol Sulfate (Ventolin Hfa), 18 GM IH QID PRN for SHORTNESS OF BREATH, ( Reported) Meclizine Hcl (Meclizine Hcl), 25 MG PO TID PRN for DIZZINESS, (Reported) Discontinued Medications Cefdinir (Cefdinir), 1 CAP PO BID Discontinued Reason: HOLD Fexofenadine/Pseudoephedrine (Rocio-D 24 Hour Tablet), 1 TAB PO DAILY, ( Reported) Discontinued Reason: No Longer Taking Tramadol Hcl (Tramadol Hcl), 50 MG PO TID, (Reported) Discontinued Reason: No Longer Taking Objective Vitals and I/O Vital Sign - Last 24 Hours 04/06/18 04/06/18 04/06/18 04/06/18 12:08 13:19 13:19 16:23 Temp 97.7 97.7 Pulse 96 94 94 97 Resp 18 18 18 18 B/P (MAP) 121/59 (79) Pulse Ox 96 94 94 96 O2 Delivery Room Air 04/06/18 04/06/18 04/06/18 04/06/18 16:23 16:24 19:00 20:09 Temp 98.4 98.4 Pulse 97 92 99 Resp 18 18 20 B/P (MAP) 142/65 (90) Pulse Ox 95 97 95 O2 Delivery Room Air Nasal Cannula O2 Flow Rate 2.00 04/06/18 04/06/18 04/07/18 04/07/18 20:09 20:16 00:07 04:00 Temp 98.6 97.7 98.6 97.7 Pulse 98 98 92 87 Resp 20 18 18 18 B/P (MAP) 145/69 (94) 156/67 (96) Pulse Ox 97 97 98 96 O2 Delivery Nasal Cannula Nasal Canula Nasal Canula O2 Flow Rate 2.00 2.00 2.00 04/07/18 04/07/18 04/07/18 04/07/18 08:30 08:47 09:50 09:53 Temp 97.7 97.7 Pulse 86 83 86 Resp 18 18 18 B/P (MAP) 163/83 (109) Pulse Ox 100 98 98 O2 Delivery Nasal Cannula Nasal Canula Nasal Cannula O2 Flow Rate 2.00 2.00 2.00 FiO2 28 04/07/18 10:05 Pulse 86 Resp 18 Pulse Ox 95 Intake and Output 04/06/18 04/06/18 04/07/18 15:01 23:01 07:01 Intake Total 240 ml 400 ml Output Total 300 ml Balance 240 ml 400 ml -300 ml General: Alert, Cooperative, No acute distress HEENT: Atraumatic, PERRLA, EOMI, Mucous membr. moist/pink Neck: Supple, No JVD, No thyromegaly Lungs: Other (improved aeration B) Heart: Regular rate, Normal S1, Normal S2 Abdomen: Normal bowel sounds, Soft Extremities: No clubbing, No cyanosis Neuro: Normal speech Psych/Mental Status: Mental status NL, Mood NL Course Sepsis Screening Results: Posi: NEGATIVE Sepsis Qualifier/Stage: NO DEFINITE RISK Vitals & review Data Vital Sign - Last 24 Hours 04/04/18 04/04/18 04/04/18 04/04/18 19:51 19:57 20:21 20:28 Temp 98.5 98.5 Pulse 80 78 78 Resp 18 18 18 B/P (MAP) 146/77 (100) Pulse Ox 95 92 96 O2 Delivery Room Air Room Air 04/05/18 04/05/18 04/05/18 04/05/18 01:30 05:30 08:04 09:00 Temp 98.6 98.3 98.6 98.6 98.3 98.6 Pulse 78 87 84 Resp 18 18 18 B/P (MAP) 142/74 (96) 136/75 (95) 147/63 (91) Pulse Ox 93 96 95 O2 Delivery Room Air Nasal Canula Nasal Canula Nasal Cannula O2 Flow Rate 2.00 2.00 2.00 04/05/18 04/05/18 04/05/18 04/05/18 10:29 10:37 10:38 13:52 Pulse 81 85 81 78 Resp 16 16 16 14 Pulse Ox 97 97 97 90 O2 Delivery Nasal Cannula O2 Flow Rate 2.00 FiO2 28 04/05/18 04/05/18 04/05/18 04/05/18 14:08 16:44 16:51 17:19 Temp 98.2 98.2 Pulse 78 104 103 101 Resp 14 18 18 18 Pulse Ox 90 84 90 91 O2 Delivery Nasal Canula O2 Flow Rate 2.00 Intake and Output 04/04/18 04/04/18 04/05/18 15:01 23:01 07:01 Intake Total 740 ml 450 ml Output Total 1300 ml Balance 740 ml -850 ml Laboratory Tests Test 04/04/18 15:43 White Blood Count 16.1 10^3/uL Red Blood Count 3.89 10^6/uL Hemoglobin 11.6 g/dL Hematocrit 37.6 % Mean Corpuscular Volume 96.7 fL Mean Corpuscular Hemoglobin 29.8 pg Mean Corpuscular Hemoglobin Concent 30.9 g/dL Red Cell Distribution Width 13.9 % Platelet Count 438 10^3/uL Mean Platelet Volume 8.8 fL Neutrophils (%) (Auto) 81.8 % Lymphocytes (%) (Auto) 9.6 % Monocytes (%) (Auto) 7.6 % Neutrophils # (Auto) 13.2 10^3/uL Lymphocytes # (Auto) 1.6 10^3/uL Monocytes # (Auto) 1.2 10^3/uL Absolute Immature Granulocyte (auto 0.04 10^3 u/L Eosinophils % 0.6 % Basophils % 0.2 % Basophils # 0.0 10^3/uL Erythrocyte Sedimentation Rate 49 mm/hr Eosinophil Count 0.1 10^3/uL Prothrombin Time 9.0 SEC Prothrombin Time INR (Non-Therap) 0.9 Sodium Level 134 mmol/L Potassium Level 4.0 mmol/L Chloride Level 99.0 mmol/L Carbon Dioxide Level 27.4 mmol/L Anion Gap 11.6 Blood Urea Nitrogen 13 mg/dL Creatinine 0.94 mg/dL Estimated GFR () 69.0 BUN/Creatinine Ratio 13.0 Glucose Level 122 mg/dL Calcium Level 11.2 mg/dL Total Bilirubin 0.3 mg/dL Aspartate Amino Transf (AST/SGOT) 11 U/L Alanine Aminotransferase (ALT/SGPT) 13 U/L Alkaline Phosphatase 170 U/L Total Creatine Kinase 70 U/L Troponin I < 0.02 ng/mL C-Reactive Protein 12.74 mg/dL Pro-B-Type Natriuretic Peptide 1116 pg/mL Total Protein 7.2 g/dL Albumin 3.5 g/dL Globulin 3.7 Percent Immature Gran (Cell Imm) 0.20 % Current Medications Medications (Trade) Dose Ordered Sig/Ermelinda PRN Reason Start Time Stop Time Status Last Admin Albuterol/ Ipratropium (Duoneb 0.5 Mg-3 Mg/3 ml Soln) 3 ml RTQID 04/04/18 17:00 05/04/18 16:59 04/05/18 16:49 Bupropion HCl (Wellbutrin Xl) 150 mg DAILY 04/05/18 09:00 05/05/18 08:59 04/05/18 08:53 Ceftriaxone Sodium 1000 mg/ Sodium Chloride 100 ml @ 100 mls/hr Q24HRS 04/04/18 19:00 05/04/18 18:59 04/04/18 19:31 Duloxetine HCl (Cymbalta) 30 mg DAILY 04/05/18 09:00 05/05/18 08:59 04/05/18 08:52 Levothyroxine Sodium (Synthroid) 50 mcg DAILY 04/05/18 09:00 05/05/18 08:59 04/05/18 08:53 Loratadine (Claritin) 10 mg DAILY 04/05/18 09:00 05/05/18 08:59 04/05/18 08:53 Meclizine HCl (Antivert) 25 mg TID PRN DIZZINESS 04/04/18 21:30 05/04/18 21:29 Metformin HCl (Glucophage) 1,000 mg BID 04/04/18 21:00 05/04/18 20:59 04/05/18 08:53 Methylprednisolone Sodium Succinate (Solu-Medrol) 40 mg Q8HR 04/04/18 22:00 05/04/18 21:59 04/05/18 14:00 Montelukast Sodium (Singulair) 10 mg DAILY 04/05/18 09:00 05/05/18 08:59 04/05/18 08:52 Naproxen (Naproxen) 250 mg BID PRN PAIN 5 - 7 04/04/18 22:00 05/04/18 21:59 Pantoprazole Sodium (Protonix) 40 mg DAILY 04/05/18 09:00 05/05/18 08:59 04/05/18 08:52 Simvastatin (Zocor) 20 mg DAILY 04/05/18 09:00 05/05/18 08:59 04/05/18 08:53 Assessment/Plan Assessment/Plan Assessment/Plan 82 yo female with COPD, DM, HTN, sinusitis - cont abx and neb tx and steroids - increase pulmonary toiletry - follow sugars ANA MARIA CHIU MD Apr 07, 2018 11:56
[2018-04-07 13:31] VITALS: BP 121/89
[2018-04-07 16:05] VITALS: BP 155/85
[2018-04-07] MEDS: LOVENOX SQ SCH (18:16)
--- NOTE | 2018-04-07 19:00 | NUR ---
BEDSIDE REPORT BEDSIDE REPORT GIVEN TO THE NIGHT NURSE APOLONIA TALLEY.
[2018-04-07 19:30] VITALS: BP 167/77
[2018-04-07] MEDS ORDERED: NS 100ML 100 ML IV ONE (19:34)
[2018-04-07] MEDS ORDERED: ROCEPHIN ONE (19:34)
[2018-04-07] MEDS: ROCEPHIN 1,000 MG in NS 100ML 100 ML IV SCH (19:38)
[2018-04-07] MEDS: RESTORIL PO PRN (20:42)
[2018-04-08] VITALS: BP 146/67
[2018-04-08 04:34] VITALS: BP 135/85
[2018-04-08 05:50] LABS: BASOPHIL % 0.2 % (0.0-0.2); EOSINOPHIL % 0.1 % (0.0-5.0); LYMPHOCYTES # 2.5 10^3/uL (1.0-4.8); LYMPHOCYTES % 19.3 % (24.0-44.0); MEAN CELL HGB 29.6 pg (26-34); MEAN CORP VOLUME 92.4 fL (78-100); MEAN PLATELET VOLUME 8.9 fL (7.8-11.0); MONOCYTES # 1.4 10^3/uL (0.3-0.8); MONOCYTES % 10.7 % (5.0-12.0); NEUTROPHIL # 8.8 10^3/uL (1.8-7.7); NEUTROPHILS % 68.5 % (41.0-85.0); RED CELL DISTRIBUTION WIDTH 13.2 % (11.5-14.5); WHITE BLOOD CELL 12.8 10^3/uL (4.5-11.0)
[2018-04-08 06:15] LABS: CALCIUM 11.2 mg/dL (8.4-10.5); CARBON DIOXIDE 29.4 mmol/L (20.0-32)
--- NOTE | 2018-04-08 06:28 | NUR ---
REPORT TO MEMO YOO
[2018-04-08 07:21] LABS: BAND NEUTROPHILS 2 % (2-6); LYMPHOCYTE 31 % (25-36); MONOCYTE 11 % (3-9); SEGMENTED NEUTROPHILS 56 % (31-76)
--- NOTE | 2018-04-08 07:26 | NUR ---
Report Report received from Lanie YOO at change of shift.
[2018-04-08] MEDS: SOLU-MEDROL IV SCH (08:56)
[2018-04-08] MEDS: CYMBALTA PO SCH (08:57)
[2018-04-08] MEDS: SINGULAIR PO SCH (08:57)
[2018-04-08] MEDS: CLARITIN PO SCH (08:57)
[2018-04-08] MEDS: SYNTHROID PO SCH (08:57)
[2018-04-08] MEDS: ZOCOR PO SCH (08:58)
[2018-04-08] MEDS: WELLBUTRIN XL PO SCH (08:58)
[2018-04-08] MEDS: PROTONIX PO SCH (08:58)
[2018-04-08] MEDS: GLUCOPHAGE PO SCH (08:58)
[2018-04-08 09:08] VITALS: BP 141/85
[2018-04-08] MEDS: DUONEB 0.5 MG-3 MG/3 ML SOLN IH SCH ×2 (09:17→13:33)
[2018-04-08] MEDS: PULMICORT IH SCH (09:17)
[2018-04-08 12:45] VITALS: BP 128/59
[2018-04-08] MEDS ORDERED: DOXY100C2 PO (13:09)
[2018-04-08 19:56] VITALS: BP 128/59
--- NOTE | 2018-04-08 20:01 | NUR ---
Discharge Patient discharged home. To the exit in a wheelchair with all her belongings. IV discontinued. Patient had portable oxygen, via nasal canula.
--- NOTE | 2018-04-09 02:09 | DSH ---
DATE OF DISCHARGE: 04/08/2018 ADMITTING DIAGNOSES: 1. Chronic obstructive pulmonary disease exacerbation with hypoxia. 2. Acute pansinusitis with hypertension, hyperlipidemia, type 2 diabetes mellitus, malaise and fatigue. DISCHARGE DIAGNOSES: 1. Chronic obstructive pulmonary disease, on chronic oxygen treatment. 2. Sinusitis with hypertension, type 2 diabetes mellitus and hyperlipidemia. HOSPITAL COURSE: The patient is a pleasant 82-year-old female who came in with more than a week of congestion and cough. Chest x-ray was negative for pneumonia and she did have an acute sinusitis with COPD exacerbation coming in and she was hypoxic when she came in. I started her on IV Solu-Medrol with IV Rocephin and breathing treatments and started incentive spirometry and flutter valve. Her clinical picture did improve and her O2 requirements went down to just 0.5 liters in the hospital from last night. She is afebrile. Her labs look okay and she is improved with her breathing at this point, so the latest labs from this morning showed a hemoglobin of 12 with platelet count of 576. White count was 12,800 and this is probably due to steroid effect. Chemistry panel showed a sodium of 131, potassium 4.1, BUN of 18, creatinine 1.02, glucose 126. CRP is down to 2.09 now, so she will be discharged today. She states that she will go and live with her daughter this week just to get her strength back. I have asked her to resume her home O2. If she cranks her O2 up to more than 3 liters a minute, then I told her to seek medical attention. She is to resume her home neb treatments and I have asked her to use her incentive spirometry and flutter valve frequently at home. Resume home diet and activity level, and follow up with me on , my office staff will make the appointment for her. We will continue her home medications. She was already on prednisone and breathing treatments. I am going to put her on doxycycline 100 mg twice a day for 7 more days and we will go from there. Marilyn Raman MD DR: KRISTEL/pelon JOB# [id number]
--- NOTE | 2018-04-09 20:58 | ECHO ---
DATE OF SERVICE: 04/05/2018 An 82-year-old female, heart murmur, dyspnea. PRIMARY PHYSICIAN: Dr. Raman. FINDINGS: Mitral valve shows mitral annular calcification, mitral regurgitation, 4.89 meters velocity with 2-3+ mitral regurgitation. Reversal of E-A ratio. Aortic sclerosis calcification. Adequate aortic valve opening of 3.45 cm. Right ventricular systolic pressure is 43 mm. Tricuspid regurgitation, 2.88 meters velocity. Mild pulmonary incompetence. Normal right ventricle. Top normal RA size. Left atrium is mildly enlarged to 5.1 cm in 4-chamber longitudinal dimension. Left ventricle is normal in size around 5.04 cm, end-diastolic dimension 2.74 cm, end-systolic dimension with mild LVH, posterior wall thicker than the septum. Ejection fraction of 70%. Hence, early LVH, grade 1 diastolic dysfunction, intact LV systolic function, mild left atrial enlargement, mild right atrial enlargement. Right ventricular systolic pressure is 43 mm and 2+ mitral regurgitation and 2+ tricuspid regurgitation and mild pulmonary incompetence. No thrombus in any of the cardiac chambers. Laxmichand MD Yanira DR: DIMAS/pelon JOB# [id number]
== END 2018-04-08 14:40 | disposition home or self-care (01) | DRG 192 ==
LOC: UNDOADMOB 15:27 → MS 15:27 → OBSVTOIN 15:35 → MS 15:35
PROVIDERS: ADMIT Pediatrics; ATTEND Pediatrics
DX: J44.1 Chronic obstructive pulmonary disease with (acute) exacerbation (principal); J01.40 Acute pansinusitis, unspecified; R09.02 Hypoxemia; I10 Essential (primary) hypertension; E11.9 Type 2 diabetes mellitus without complications; E78.5 Hyperlipidemia, unspecified; K21.9 Gastro-esophageal reflux disease without esophagitis; Z90.710 Acquired absence of both cervix and uterus; Z99.81 Dependence on supplemental oxygen; Z87.891 Personal history of nicotine dependence; Z83.6 Family history of other diseases of the respiratory system; Z82.49 Family history of ischemic heart disease and other diseases of the circulatory system; Z83.3 Family history of diabetes mellitus; Z88.5 Allergy status to narcotic agent; Z88.0 Allergy status to penicillin
CPT/HCPCS: 36415; 71046; 80048; 80053; 82550; 82948; 83880; 84484; 85025; 85610; 85651; 86140; 93005; 93307; 94640; 94667; 99285; G0378; J0696; J1650; J2920; J2930; J3490; J7040; J7050; J7620; J7627; J8499

== ENCOUNTER → 2018-11-22 | Outpatient (CLI) | payer MEDICARE, OTHER ==
[~2018-11-22] MED LIST changes: +ALBU18HF IH; +BUPR150T17 PO; +BUPR150T6 PO; +LORA10TA75 PO; +MONT10TA9 PO; +[UNRECOGNIZED DRUG - CODE] PO
--- NOTE | 2018-11-22 12:37 | DIREP ---
PROCEDURE:XR ABDOMEN 2 VIEWS COMPARISON:None. INDICATIONS:ABD PAIN, CONSTIPATION TECHNIQUE:Flat and upright views of the abdomen are provided. FINDINGS: BOWEL GAS PATTERN:A moderate fecal burden is noted throughout the colon. No pneumatosis is seen. CALCIFICATIONS:None significant. LUNG BASES:Clear. BONES:Moderate degenerative changes of the lumbar spine and levoconvex scoliosis of the lumbar spine noted. Fairly severe degenerative disc disease is noted at L3/4 and L4/5. OTHER:No additional findings. CONCLUSION: 1. Moderate fecal burden which likely is associated with some degree of constipation. There is no evidence of bowel obstruction. Dictated by: Popeye Wong M.D. on 11/22/2018 at 12:35 PM
== END | disposition home or self-care (01) ==
LOC: RAD 11:27
PROVIDERS: ATTEND Pediatrics
DX: R10.9 Unspecified abdominal pain (principal); K59.00 Constipation, unspecified; M47.816 Spondylosis without myelopathy or radiculopathy, lumbar region; M41.86 Other forms of scoliosis, lumbar region; M51.36 Other intervertebral disc degeneration, lumbar region
CPT/HCPCS: 74019

== ENCOUNTER → 2018-11-29 | Outpatient (CLI) | payer MEDICARE, OTHER ==
[2018-11-29 12:58] LABS: BASOPHIL # 0.1 10^3/uL (0.0-0.1); BASOPHIL % 0.7 % (0.0-0.2); EOSINOPHIL # 0.5 10^3/uL (0.0-0.2); EOSINOPHIL % 7.5 % (0.0-5.0); HEMOGLOBIN 11.4 g/dL (12.0-15.0); LYMPHOCYTES # 2.7 10^3/uL (1.0-4.8); LYMPHOCYTES % 38.3 % (24.0-44.0); MEAN CELL HGB 30.6 pg (26-34); MEAN CELL HGB CONCENTRATION 31.8 g/dL (33-37); MEAN PLATELET VOLUME 9.5 fL (7.8-11.0); MONOCYTES # 0.5 10^3/uL (0.3-0.8); MONOCYTES % 7.6 % (5.0-12.0); NEUTROPHIL # 3.2 10^3/uL (1.8-7.7); NEUTROPHILS % 45.8 % (41.0-85.0); RED CELL DISTRIBUTION WIDTH 14.9 % (11.5-14.5); WHITE BLOOD CELL 6.9 10^3/uL (4.5-11.0)
[2018-11-29 13:43] LABS: CARBON DIOXIDE 29.4 mmol/L (20.0-32)
== END | disposition home or self-care (01) ==
LOC: NPLAB 11:07
PROVIDERS: ATTEND Pediatrics
DX: E11.9 Type 2 diabetes mellitus without complications (principal); D64.9 Anemia, unspecified; E03.9 Hypothyroidism, unspecified; E78.5 Hyperlipidemia, unspecified; Z79.899 Other long term (current) drug therapy
CPT/HCPCS: 80053; 82306; 82728; 83540; 83550; 84439; 84443; 85025; 85651

== ENCOUNTER → 2020-01-10 | Outpatient (CLI) | payer MEDICARE, OTHER ==
[~2020-01-10] MED LIST changes: -ALEN70TA6 PO; +ALEN70TA65 PO; +MONT10TA11 PO; -MONT10TA9 PO; -PANT40TA5 PO; +PANT40TA6 PO; +SIMV20TA19 PO; -SIMV20TA3 PO
[2020-01-10 09:04] LABS: MEAN CORP HGB 31.3 pg (26-34)
[2020-01-10 09:12] LABS: APPEARANCE,URINE CLEAR (CLEAR); BILIRUBIN,URINE NEGATIVE (NEGATIVE); UA COLOR YELLOW (YELLOW); UROBILINOGEN,URINE NORMAL (NEGATIVE)
[2020-01-10 09:27] LABS: CARBON DIOXIDE 30.1 mmol/L (20.0-32)
--- NOTE | 2020-01-10 10:55 | DIREP ---
PROCEDURE:US ABDOMEN LIMITED (SINGLE ORGAN - QUAD) COMPARISON:[facility], GALLBLADDER, 10/23/2018, 08:59 AM. INDICATIONS:RUQ PAIN, N/V TECHNIQUE:High resolution sonographic examination was performed of the abdomen. FINDINGS: PANCREAS:The pancreas appears thickened. The pancreatic duct is noted measuring 0.3 cm. Tail is not evaluate LIVER:Normal hepatic parenchymal architecture. No focal hepatic lesion is identified. Hepatopetal flow in the portal vein. GALLBLADDER:Appears distended. There are shadowing gallstones and sludge in the lumen of the gallbladder. No evidence for gallbladder wall thickening or pericholecystic fluid. Negative sonographic Castellano's sign. BILIARY:There is no biliary ductal dilatation. RIGHT KIDNEY:Normal. No hydronephrosis. OTHER:Negative. No ascites is identified. CBD:0.5 cm GALLBLADDER WALL: 0.3 cm RIGHT KIDNEY: 8.0 x 4.3 x 4.0 cm. CONCLUSION: 1. Cholelithiasis without imaging evidence for cholecystitis. 2. Prominent pancreatic duct measures 3 mm in diameter Dictated by: RASHID Physician on 01/10/2020 at 10:03 AM
== END | disposition home or self-care (01) ==
LOC: RAD 08:43
PROVIDERS: ATTEND Nurse Practitioner Family
DX: K80.20 Calculus of gallbladder without cholecystitis without obstruction (principal); R10.11 Right upper quadrant pain; R11.2 Nausea with vomiting, unspecified; E03.9 Hypothyroidism, unspecified; E78.5 Hyperlipidemia, unspecified; E11.9 Type 2 diabetes mellitus without complications; R30.0 Dysuria
CPT/HCPCS: 36415; 76705; 80053; 80061; 81003; 83036; 84443; 85027

== ENCOUNTER → 2020-01-17 | Outpatient (CLI) | payer MEDICARE, OTHER ==
--- NOTE | 2020-01-17 14:55 | PCM.EKG ---
[facility] Test Date: 2020-01-17 Test Time: 14:52:24 Pat Name: SARAH KWAN Department: Room: Gender: F Egg Crater: TAQUERIA : 1935 Requested By: ANA MARIA CHIU Order Number: [id number] Reading MD: Measurements Intervals [place] Rate: 85 P: 74 [place]: 168 QRS: 90 QRSD: 140 T: 77 QT: 393 QTc: 468 Interpretive Statements Sinus rhythm RBBB and LPFB Compared to ECG 09/28/2018 22:10:32 Left posterior fascicular block now present Please click the below link to view image of tracing.
--- NOTE | 2020-01-17 15:41 | DIREP ---
PROCEDURE:CHEST 2 VIEWS COMPARISON:[facility], CR, XRAY CHEST SINGLE VW, 09/28/2018, 10:10 PM. [facility], CR, XRAY CHEST 2 VWS, 04/04/2018, 03:58 PM. INDICATIONS:COPD, COUGH FINDINGS: LUNGS/PLEURA:Hyperinflated lung sanford with chronic interstitial changes. Bibasilar atelectasis. No focal consolidation, pleural effusion or pneumothorax. VASCULATURE:Unremarkable pulmonary vasculature. Calcified aortic arch. CARDIAC:Normal. No cardiac silhouette abnormality or cardiomegaly. MEDIASTINUM:Normal. No visible mass or adenopathy. BONES:Degenerative change without evidence of acute osseus abnormality. OTHER:Negative. CONCLUSION: 1. Bibasilar atelectasis without focal consolidation. 2. 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 Dictated by: Arturo Dawkins MD on 01/17/2020 at 03:36 PM
== END | disposition home or self-care (01) ==
LOC: RT 12:53
PROVIDERS: ATTEND Pediatrics
DX: J44.9 Chronic obstructive pulmonary disease, unspecified (principal); R06.02 Shortness of breath; R53.83 Other fatigue; R53.81 Other malaise; R18.8 Other ascites
CPT/HCPCS: 36415; 71046; 82550; 82553; 83880; 84484; 85610; 93005; 94060; 94729

== ENCOUNTER 2020-04-04 18:32 | Emergency (ER) | payer MEDICARE, OTHER ==
[~2020-04-04] VITALS: Ht 157.5 cm; Wt 48.1 kg
[~2020-04-04 18:32] MED LIST changes: -ALEN70TA65 PO; +ALEN70TA76 PO; -BUPR150T6 PO; +BUPR150T7 PO; -MONT10TA11 PO; +MONT10TA95 PO
[2020-04-04 19:15] VITALS: BP 136/65
--- NOTE | 2020-04-04 19:47 | PCM.EKG ---
[facility] Test Date: 2020-04-04 Test Time: 19:22:24 Pat Name: SARAH KWAN Department: Patient ID: [facility]-[id number] Room: Gender: F Grades 1 Thru 6 Visiting Teacher: JAYY : 1935 Requested By: CAROL THOMPSON Order Number: [id number] Reading MD: Carol THOMPSON Measurements Intervals [place] Rate: 103 P: 60 CA: 133 QRS: 87 QRSD: 136 T: 65 QT: 363 QTc: 475 Interpretive Statements Sinus tachycardia Ventricular premature complex Right bundle branch block Compared to ECG 01/17/2020 14:52:24 Ventricular premature complex(es) now present Sinus rhythm no longer present Left posterior fascicular block no longer present Electronically Signed On 04-05-2020 5:49:42 RISK ASSESSOR by Carol THOMPSON Please click the below link to view image of tracing.
[2020-04-04 19:52] LABS: BASOPHIL % 0.2 % (0.0-0.2); EOSINOPHIL % 0.1 % (0.0-5.0); LYMPHOCYTES # 1.26 10^3/uL1 (1.0-4.8); LYMPHOCYTES % 5.8 % (24.0-44.0); MEAN CORP HGB 30.5 pg (26-34); MONOCYTES # 0.9 10^3/uL (0.3-0.8); NEUTROPHIL # 19.5 10^3/uL (1.8-7.7); NEUTROPHILS % 89.5 % (41.0-85.0); PLATELET COUNT 523 10^3/uL (150-400); RED CELL DISTRIBUTION WIDTH 13.1 % (11.5-14.5)
[2020-04-04 20:06] LABS: ABG PCO2 31.6 mmHg (35.0-45.0); ABG PH 7.453 (7.350-7.450); BE(B) -1.6 mmol/L (-2.0-2.0); HCO3act 21.6 mmol/L (22.0-26.0); pO2 59.9 mmHg (80.0-100.0)
--- NOTE | 2020-04-04 20:09 | DIREP ---
PROCEDURE:CHEST 1 VIEW COMPARISON:[facility], CR, XRAY CHEST 2 VWS, 01/17/2020, 02:58 PM. INDICATIONS:DYSPNEA FINDINGS: LUNGS/PLEURA:There are increased coarse reticular markings in the left mid and lower lung field. There is a 3-4 cm opacity in the left lung base and there is a faint 3 cm opacity in the right lung base. VASCULATURE:Normal. Unremarkable pulmonary vasculature. CARDIAC:Normal. No cardiac silhouette abnormality or cardiomegaly. MEDIASTINUM:Normal. No visible mass or adenopathy. BONES:Normal. No fracture or visible bony lesion. OTHER:Negative. CONCLUSION: 1. Opacities in both lung bases, infiltrates versus mass lesions. 2. Coarse reticular markings in the left mid and lower lung field, inflammatory infiltrate versus pulmonary edema. Dictated by: Shanda Campos III, MD on 04/04/2020 at 08:03 PM
[2020-04-04 20:15] VITALS: BP 131/61
[2020-04-04 20:15] LABS: ALANINE AMINOTRANSFERASE(ML) 11 U/L (12-78); ALKALINE PHOSPHATASE 110 U/L (50-136); ASPARTATE AMINO TRANSFERASE 8 U/L (0-35); CALCIUM 10.4 mg/dL (8.4-10.5); CARBON DIOXIDE 26.1 mmol/L (20.0-32); GLUCOSE 131 mg/dL (70-110)
[2020-04-04 20:50] LABS: LYMPHOCYTE 7 % (25-36); MONOCYTE 1 % (3-9); SEGMENTED NEUTROPHILS 92 % (31-76)
[2020-04-04] MEDS ORDERED: CITA10TA4 PO (20:54)
[2020-04-04] MEDS ORDERED: OMEP40CA41 PO (20:54)
[2020-04-04] MEDS ORDERED: ROCEPHIN ONE (21:08)
[2020-04-04] MEDS ORDERED: NS 250ML 250 ML IV ONE (21:08)
[2020-04-04] MEDS ORDERED: ULTRAM ONE (21:09)
[2020-04-04] MEDS ORDERED: ROCEPHIN 1,000 MG in NS 100ML 100 ML IV STA (21:10)
[2020-04-04] MEDS ORDERED: ZITHROMAX 500 MG in NS 250ML 250 ML IV STA (21:10)
[2020-04-04] MEDS ORDERED: ULTRAM PO STA (21:10)
[2020-04-04 21:15] VITALS: BP 141/68
--- NOTE | 2020-04-04 21:16 | ER.PDOC ---
General Chief Complaint: Dyspnea/Respdistress Stated Complaint: DIFF BREATHING POSS PNEUM Time seen by MD: 21:13 Source: patient Exam Limitations: no limitations History of Present Illness Initial Comments Difficulty breathing, cough productive of brown sputum and pain left lateral chest with inspiration for 3 days. No fever or chills. Patient had a breathing treatment before coming to the ED. Severity: moderate Activities at Onset: none Prior Episodes/Possible Cause: occasional episodes, chronic episodes Modifying Factors: worse with activity, worse with albuterol inhaler, worse with albuterol nebulizer, worse with antibiotics; improves with coughing; worse with lying down, worse with oxygen, worse with rest, worse with other Associated Symptoms: chest pain, cough Allergies: Coded Allergies: Penicillins (Unverified Allergy, Unknown, SWELLING,SICK TO STOMACH, 01/12/15) codeine (Unverified Adverse Reaction, Severe, 07/24/17) DIZZINESS Home Meds Reported Medications Citalopram Hydrobromide (CITALOPRAM HBR) 10 Mg Tablet, 1 TAB PO DAILY, #30 TAB 3 Refills 04/04/20 Omeprazole (OMEPRAZOLE) 40 Mg Capsule.dr, 1 CAP PO DAILY, #30 CAP 3 Refills 04/04/20 Ipratropium/Albuterol Sulfate (IPRAT-ALBUT 0.5-3(2.5) MG/3 ML) 3 Ml Ampul.neb, 3 ML IH PRN PRN for SHORTNESS OF BREATH 09/28/18 Fluticasone/Salmeterol (ADVAIR 500-50 DISKUS) 1 Each Disk.w.dev, 1 PUFF IH BID, #1 INHALER 5 Refills 09/28/18 Simvastatin (SIMVASTATIN) 20 Mg Tablet, 1 TAB PO DAILY24, #30 TAB 5 Refills 09/28/18 Levothyroxine Sodium (LEVOTHYROXINE SODIUM) 50 Mcg Tablet, 1 TAB PO DAILY, #30 TAB 5 Refills 09/28/18 Prednisone (PREDNISONE) 1 Mg Tablet, 1 MG PO DAILY24, TABLET 09/28/18 Montelukast Sodium (MONTELUKAST SODIUM) 10 Mg Tablet, 1 TAB PO HS, #30 TAB 5 Refills 09/28/18 Tramadol Hcl (TRAMADOL HCL) 50 Mg Tablet, 1 TAB PO TID for PAIN, #90 TAB 09/28/18 Metformin Hcl (METFORMIN HCL) 1,000 Mg Tablet, 1 TAB PO BID, #60 TAB 5 Refills 09/28/18 Albuterol Sulfate (VENTOLIN HFA) 18 Gm Hfa.aer.ad, 18 GM IH PRN PRN for SHORTNESS OF BREATH 09/28/18 Discontinued Reported Medications Pantoprazole Sodium (PANTOPRAZOLE SODIUM) 40 Mg Tablet.dr, 1 TAB PO DAILY, #30 TAB 3 Refills 09/28/18 Bupropion Hcl (BUPROPION XL) 150 Mg Tab.er.24h, 1 TAB PO DAILY, #30 TAB 09/28/18 Past Medical History Medical History: COPD, diabetes Surgical History: hip, hysterectomy, tonsillectomy Family History Significant Family History: no pertinent family hx Social History Alcohol Use: none Drug Use: none Review of Systems Constitutional: no symptoms reported EENTM: no symptoms reported Respiratory: see HPI Cardiovascular: see HPI Gastrointestinal: no symptoms reported All Other Systems: Reviewed and Negative Physical Exam General Appearance: No Apparent Distress, WD/WN HEENT: Normal ENT Inspection Neck: Non-Tender, Full Range of Motion, Supple, Normal Inspection Respiratory: chest non-tender, no respiratory distress, no accessory muscle use, crackles Cardiovascular: Normal Peripheral Pulses, Regular Rate, Rhythm, No Edema, No Gallop, No JVD, No Murmur Gastrointestinal: Normal Bowel Sounds, No Organomegaly, No Pulsatile Mass, Non Tender, Soft Extremities: Normal Range of Motion, Non-Tender, Normal Inspection, No Pedal Edema, No Calf Tenderness, Normal Capillary Refill Neurologic/Psychiatric: training facilitator II-XII NML as Tested, No Motor/Sensory Deficits, Alert, Normal Mood/Affect, Oriented x 3 Skin: Normal Color, Warm/Dry Lymphatic: No Adenopathy Results/Orders Results/Orders Orders - CAROL THOMPSON MD Cbc With Auto Diff (04/04/20 19:38) Comprehensive Metabolic Panel (04/04/20 19:38) Creatine Kinase (04/04/20 19:38) Creatine Kinase Mb (04/04/20 19:38) Probnp B-Type Broadcast Chief Engineer (04/04/20 19:38) Troponin I (04/04/20 19:38) D-Dimer (04/04/20 19:38) Blood Culture (04/04/20 19:38) Xr Chest 1v (04/04/20 19:38) PT (04/04/20 19:38) Partial Thromboplastin Time. (04/04/20 19:38) Ekg-Routine (04/04/20 19:38) Covid19 Antigen Marlene Lizzy (04/04/20 19:47) Arterial Blood Gas (04/04/20 19:47) Procalcitonin (04/04/20 19:51) Lactic Acid(Ml) (04/04/20 19:51) Ct Chest Wo Iv Contrast (04/04/20 20:33) Ferritin(Ml) (04/04/20 20:57) Lactate Dehydrogenase (04/04/20 20:57) C-Reactive Protein (04/04/20 20:57) Ceftriaxone Sodium (Rocephin) (04/04/20 21:08) 0.9 % Sodium Chloride (Ns 250ml) (04/04/20 21:08) Tramadol Hcl (Ultram) (04/04/20 21:09) Ceftriaxone Sodium (Rocephin) (04/04/20 21:10) Tramadol Hcl (Ultram) (04/04/20 21:10) Azithromycin (Zithromax) (04/04/20 21:10) 0.9 % Sodium Chloride (Ns 1000ml) (04/04/20 22:26) Vital Signs Date Time Temp Pulse Resp B/P (MAP) Pulse Ox O2 Delivery O2 Flow Rate FiO2 04/04/20 22:15 97.9 92 18 137/56 (83) 95 Nasal Canula 2.00 04/04/20 21:15 97.9 96 18 141/68 (92) 94 Nasal Canula 2.00 04/04/20 20:15 97.9 105 20 131/61 (84) 96 Nasal Canula 2.00 04/04/20 19:15 97.9 100 20 97 04/04/20 19:15 97.9 100 20 136/65 (88) 97 Nasal Canula 2.00 04/04/20 19:15 97.9 100 20 Administered Medications Medications (Trade) Dose Ordered Sig/Ermelinda Route PRN Reason Start Time Stop Time Status Last Admin Dose Admin Azithromycin 500 mg/Sodium Chloride 250 ml @ 175 mls/hr STAT STAT IV 04/04/20 21:10 04/04/20 22:35 UNV 04/04/20 21:28 175 MLS/HR Ceftriaxone Sodium 1000 mg/ Sodium Chloride 100 ml @ 100 mls/hr STAT STAT IV 04/04/20 21:10 04/04/20 22:09 UNV 04/04/20 21:28 100 MLS/HR Tramadol HCl (Ultram) 50 mg STAT STAT PO 04/04/20 21:10 04/04/20 21:11 UNV 04/04/20 21:28 50 MG Laboratory Tests Test 04/04/20 19:10 04/04/20 19:50 04/04/20 19:55 04/04/20 20:04 White Blood Count 21.8 10^3/uL (4.5-11.0) H Red Blood Count 3.84 10^6/uL (4.00-5.20) L Hemoglobin 11.7 g/dL (12.0-15.0) L Hematocrit 35.7 % (36.0-46.0) L Mean Corpuscular Volume 93.0 fL (78-100) Mean Corpuscular Hemoglobin 30.5 pg (26-34) Mean Corpuscular Hemoglobin Concent 32.8 g/dL (33-36.5) L Red Cell Distribution Width 13.1 % (11.5-14.5) Platelet Count 523 10^3/uL (150-400) H Mean Platelet Volume 8.8 fL (7.8-11.0) Neutrophils (%) (Auto) 89.5 % (41.0-85.0) H Lymphocytes (%) (Auto) 5.8 % (24.0-44.0) *L Monocytes (%) (Auto) 4.0 % (5.0-12.0) L Neutrophils # (Auto) 19.5 10^3/uL (1.8-7.7) H Lymphocytes # (Auto) 1.26 10^3/uL1 (1.0-4.8) Monocytes # (Auto) 0.9 10^3/uL (0.3-0.8) H Absolute Immature Granulocyte (auto 0.08 10^3 u/L (0-2) Absolute Eosinophils (auto) 0.0 10^3/uL (0.0-0.2) Immature Granulocytes % 0.40 % (0.00-0.50) Eosinophils % 0.1 % (0.0-5.0) Basophils % 0.2 % (0.0-0.2) Basophils # 0.0 10^3/uL (0.0-0.1) Prothrombin Time 10.6 SEC (9.3-11.3) Prothrombin Time INR (Non-Therap) 1.0 Activated Partial Thromboplast Time 25.8 SEC (24.67-30.72) D-Dimer 4.18 mg/L (0.19-0.49) *H Sodium Level 134 mmol/L (132-145) Potassium Level 4.6 mmol/L (3.6-5.2) Chloride Level 97.0 mmol/L (96-109) Carbon Dioxide Level 26.1 mmol/L (20.0-32) Anion Gap 15.5 Blood Urea Nitrogen 35 mg/dL (7-18) H Creatinine 1.68 mg/dL (0.59-1.40) H Estimated GFR () 35.1 (>/=60) Est GFR (CKD-EPI)(Non-Afr Somali) 29.0 (>/=60) BUN/Creatinine Ratio 20.0 Glucose Level 131 mg/dL (70-110) H Calcium Level 10.4 mg/dL (8.4-10.5) Ferritin 140 ng/mL (8-252) Total Bilirubin 0.3 mg/dL (0.2-1.0) Aspartate Amino Transferase (AST) 8 U/L (0-35) Alanine Aminotransferase (ALT) 11 U/L (12-78) L Alkaline Phosphatase 110 U/L (50-136) Lactate Dehydrogenase 172 U/L (81-234) Total Creatine Kinase 14 U/L (26-192) L Creatine Kinase MB < 0.5 ng/mL (0.5-3.6) L Troponin I < 0.02 ng/mL (0.00-0.05) C-Reactive Protein 19.48 mg/dL (0.00-5.00) H Pro-B-Type Natriuretic Peptide 3950 pg/mL (0-450) H Total Protein 6.5 g/dL (6.4-8.2) Albumin 2.7 g/dL (3.4-5.0) L Globulin 3.8 Albumin/Globulin Ratio 0.710 Blood Gas Sample Site LEFT BRACHIAL ARTRY Blood pH 7.453 (7.350-7.450) Blood Gas PCO2 31.6 mmHg (35.0-45.0) L Blood Gas PO2 59.9 mmHg (80.0-100.0) L Blood Gas HCO3 21.6 mmol/L (22.0-26.0) L Blood Gas Base Excess -1.6 mmol/L (-2.0-2.0) Miky Test N/A Arterial Blood Oxygen Saturation 92.0 % (94.0-97.00) L Deoxyhemoglobin 8.0 % (0.0-5.0) H Carboxyhemoglobin 0.3 % (0.0-3.9) Methemoglobin 0.2 % (0.00-5.0) Total Hemoglobin 11.9 % (12.0-17.8) L Total Oxygen Concentration 15.3 % (13.5-17.5) Blood Gas Temperature 37.0 Oxygen Delivery Method 2LNC FiO2 28.0 % (20-101) Total Carbon Dioxide 22.6 mmol/L (23-27) L SARS-CoV-2 Antigen (Rapid) NEGATIVE (NEGATIVE) Lactic Acid Level 1.3 mmol/L (0.5-1.9) Procalcitonin 0.39 ng/mL (0.05-0.5) Segmented Neutrophils 92 % (31-76) H Lymphocytes 7 % (25-36) L Monocytes 1 % (3-9) L Platelet Estimate INCREASED Platelet Morphology NORMAL Progress Progress CXR: Opacities in both lung bases, infiltrates versus mass lesions. 2. Coarse reticular markings in the left mid and lower lung field, inflammatory infiltrate versus pulmonary edema. CT Chest: Infiltrates and consolidation in the left lower lobe and small patch of infiltrate in the left upper lobe. 2. 3 cm neoplasm versus consolidation or rounded atelectasis in the left lower lobe near the diaphragm. 3. There are numerous tiny nodules scattered in both lungs, not definitely seen on prior studies. This finding is worrisome for early metastatic disease. 4. Emphysema. 5. The left kidney is not fully evaluated, but there does appear to be mild left hydronephrosis. Consider ultrasound or CT abdomen to further evaluate. Patient transferred to [place] because of possible lung mass with metastasis. EKG/XRAY/CT/US EKG: NSR, RBBB EKG Comments: Rate 103, sinus tachycardia ER DEPART Departure Time of Disposition: 22:33 Disposition: 02 XFER SHT-TRM HOSP Impression: Primary Impression: Lung mass Additional Impressions: Metastasis Sepsis Pneumonia COPD exacerbation Condition: Critical Referrals: PCP,UNKNOWN (PCP) PRIMARY CARE PROVIDER Comments Transfer to [facility] ED for Dr. 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
--- NOTE | 2020-04-04 22:05 | DIREP ---
PROCEDURE:CT CHEST WITHOUT CONTRAST TECHNIQUE:Axial cuts were obtained through the chest, without intravenous contrast material. The images were viewed at lung and soft tissue settings. Sagittal and coronal reconstructions are provided. COMPARISON:[facility], CT, CT CHEST W/CONTRAST, 07/24/2017, 06:28 PM. [facility], US, US ABDOMEN LIMITED(SINGLE ORGAN-QUAD), 01/10/2020, 09:33 AM. [facility], CT, CT CHEST W/O, 01/31/2016, 09:44 PM. INDICATIONS:Shortness of breath and cough FINDINGS: LUNGS:Extensive ground-glass opacities and patches of consolidation in the left lower lobe. 3.3 cm mass or masslike opacity in the left lung base. There is also a ground glass opacity in the left upper lobe adjacent to the fissure. Numerous nodules scattered in both lungs, measuring up to 4 mm. Increased AP diameter of the chest. PLEURA:Minimal left pleural effusion. CARDIAC:Normal size heart and normal pulmonary vascularity. THORACIC AORTA:Normal. MEDIASTINUM/JADYN:Normal. CHEST WALL:Normal. LIMITED ABDOMEN:Mild left hydronephrosis. BONES:Normal. THYROID:Normal. OTHER:No additional findings. CONCLUSION: 1. Infiltrates and consolidation in the left lower lobe and small patch of infiltrate in the left upper lobe. 2. 3 cm neoplasm versus consolidation or rounded atelectasis in the left lower lobe near the diaphragm. 3. There are numerous tiny nodules scattered in both lungs, not definitely seen on prior studies. This finding is worrisome for early metastatic disease. 4. Emphysema. 5. The left kidney is not fully evaluated, but there does appear to be mild left hydronephrosis. Consider ultrasound or CT abdomen to further evaluate. Dictated by: Shanda Campos III, MD on 04/04/2020 at 09:53 PM
[2020-04-04 22:15] VITALS: BP 137/56
[2020-04-04] MEDS ORDERED: NS 1000ML 1,000 ML ONE (22:26)
[2020-04-04] MEDS ORDERED: NS 1000ML 1,000 ML IV STA (22:26)
[2020-04-04] MEDS ORDERED: SOLU-MEDROL IV STA (22:31)
[2020-04-04] MEDS ORDERED: SOLU-MEDROL ONE (22:38)
[2020-04-04 22:43] VITALS: BP 129/64
--- NOTE | 2020-04-04 22:47 | NUR ---
DELAY IN TRANSFER [facility], CALLED STATES THEY WILL COME FOR PATIENT AFTER OTHER AMBULANCE IS BROUGHT FROM [facility]. SO THERE WILL BE A DELAY IN TRANSPORT TO [facility] NOTIFIED
--- NOTE | 2020-04-04 22:50 | NUR ---
REPORT TO [facility] REPORT GIVEN TO SAM ODGEN RN
[2020-04-04 23:45] VITALS: BP 142/54
== END 2020-04-04 23:45 | disposition short-term general hospital (02) ==
LOC: ER 18:32
DX: A41.9 Sepsis, unspecified organism (principal); C79.81 Secondary malignant neoplasm of breast; J18.9 Pneumonia, unspecified organism; E11.9 Type 2 diabetes mellitus without complications; J44.0 Chronic obstructive pulmonary disease with (acute) lower respiratory infection; J44.1 Chronic obstructive pulmonary disease with (acute) exacerbation; Z79.51 Long term (current) use of inhaled steroids; Z79.52 Long term (current) use of systemic steroids; Z79.84 Long term (current) use of oral hypoglycemic drugs; Z79.899 Other long term (current) drug therapy; Z88.5 Allergy status to narcotic agent; Z90.710 Acquired absence of both cervix and uterus; Z88.0 Allergy status to penicillin; Z20.822 Contact with and (suspected) exposure to COVID-19
CPT/HCPCS: 36415; 36600; 71045; 71250; 80053; 82550; 82553; 82728; 82803; 83605; 83615; 83880; 84145; 84484; 85025; 85379; 85610; 85730; 86140; 87040 ×2; 87077; 87426; 93005; 96365; 96368; 96375; 99291; J0456; J0696 ×2; J2930; J7030; J7050 ×3

== ENCOUNTER → 2020-05-11 | Outpatient (CLI) | payer MEDICARE, OTHER ==
[~2020-05-11] MED LIST changes: +CITA10TA4 PO; +MONT10TA20 PO; -MONT10TA95 PO; +OMEP40CA41 PO
[2020-05-11 17:00] LABS: APPEARANCE,URINE CLEAR (CLEAR); BILIRUBIN,URINE NEGATIVE (NEGATIVE); UA COLOR YELLOW (YELLOW); UROBILINOGEN,URINE NEGATIVE (NEGATIVE)
== END | disposition home or self-care (01) ==
LOC: NPLAB 16:15
PROVIDERS: ATTEND Nurse Practitioner Family
DX: R30.0 Dysuria (principal); R35.0 Frequency of micturition
CPT/HCPCS: 81000

== ENCOUNTER → 2020-06-05 | Outpatient (CLI) | payer MEDICARE, OTHER ==
[~2020-06-05] MED LIST changes: +BUPR150T23 PO; -BUPR150T7 PO
[2020-06-05 10:54] LABS: RED CELL DISTRIBUTION WIDTH 17.6 % (11.5-14.5)
[2020-06-05 11:06] LABS: CALCIUM 9.9 mg/dL (8.4-10.5); CARBON DIOXIDE 24.5 mmol/L (20.0-32)
== END | disposition home or self-care (01) ==
LOC: LAB 09:51
DX: K86.89 Other specified diseases of pancreas (principal); I10 Essential (primary) hypertension; Z79.899 Other long term (current) drug therapy; R10.9 Unspecified abdominal pain
CPT/HCPCS: 36415; 80053; 85027; 85610